=== PATIENT | female | born 1975 ===

== ENCOUNTER 2020-04-05 10:50 | Emergency (ER) | payer MEDICAID, SELFPAY ==
[2020-04-05 12:33] VITALS: BP 132/95; PULSE 69; RESP 12; TEMP 36.7; O2SAT 100; BMI 29.2
--- NOTE | 2020-04-05 12:37 | US_ITS ---
EXAM: Pelvic Ultrasound CLINICAL INDICATION: 44-year-old female with pelvic pain and bleeding. COMPARISON: No similar recent prior imaging available for comparison. TECHNIQUE: The pelvis was evaluated using transabdominal and transvaginal imaging. Color Doppler imaging and of the bilateral ovaries was also performed. FINDINGS: The uterus measures 9.0 x 5.0 x 5.0 cm in longitudinal by AP by transverse dimension. The endometrial stripe is not thickened and measures 0.3 cm. A few small nabothian cysts are present within the cervix. The left ovary measures approximately 2.4 x 1.5 x 1.6 cm and is normal. The right ovary measures approximately 2.1 x 1.5 x 1.6 cm and is also normal. Normal color Doppler flow in the bilateral ovaries. There are no abnormal adnexal masses. There is no free fluid in the pelvis. IMPRESSION: Unremarkable sonographic imaging of the pelvis.
--- NOTE | 2020-04-05 12:37 | ED.FEMALEGU ---
HPI - Female Genitourinary General Chief complaint: Vaginal Bleeding Stated complaint: VAGINAL BLEEDING Time Seen by Provider: 04/05/20 12:36 Source: patient Mode of arrival: ambulatory Limitations: no limitations History of Present Illness HPI Narrative: regular period started 2 days ago MD elicited complaint: vaginal bleeding and pelvic pain Pertinent past history: other (fibroids) Onset (ago): day(s) (1) Location of symptoms: suprapubic Severity: moderate Quality of pain: cramping Consistency: constant Vaginal bleeding: moderate, heavy, clots and # pads per day (5 today) Exacerbating factors: none Relieving factors: none Associated symptoms: denies other symptoms Treatment prior to arrival: none Patient : No Related Data Previous Rx's Medication Instructions Recorded hydrocodone-acetaminophen 1 tab PO Q6H PRN #7 tab 04/05/20 ondansetron 4 mg PO Q8H PRN #20 tab 04/05/20 Allergies Allergy/AdvReac Type Severity Reaction Status Date / Time tramadol [TRAMADOL] Allergy Intermediate HIVES Verified 04/05/20 13:47 Iodinated Contrast Media Allergy Unknown HIVES Verified 04/05/20 13:07 [IVP DYE] naproxen Allergy Anaphylaxis Verified 04/05/20 13:08 Review of Systems Review of Systems: Constitutional : No Fever, No Chills ENT/Mouth : No sore throat, No Rhinorrhea Eyes: No Eye Pain, No Redness Cardiovascular : No Chest Pain, No SOB Respiratory : No Cough, No Sputum, No Wheezing Gastrointestinal : positive Nausea, No Vomiting, No Diarrhea, positive abdominal pain, Genitourinary : positive irregular bleeding, No Dysuria, No Urinary Frequency, positive pelvic pain Musculoskeletal : No Myalgias Skin : No rash Neuro : positive Weakness, No Headache, feels dizzy at times Psych : No Anxiety/Panic, No Depression Heme/Lymph: No bruising, No Lymphadenopathy Endocrine : No Polyuria, No Polydipsia All other systems reviewed and are negative PMFSH Past Medical History Medical History (Updated 04/05/20 @ 15:21 by Meagan Rodriguez DO) delivery delivered Depressed Fibromyalgia Migraine PTSD (post-traumatic stress disorder) PTSD (post-traumatic stress disorder) Scoliosis Surgical History (Updated 04/05/20 @ 13:04 by Meagan Rodriguez DO) Tubal ligation status Social History Social History Alcohol intake: current Alcohol intake frequency: a few times a month Smoking Status: Never smoker Use of substances other than those prescribed or required for medical reasons: No Advance Directives: No Advance Directives Information Provided: No Physical Exam Vital Signs: Vital Signs: Vital Signs Temp Pulse Resp BP Pulse Ox 04/05/20 15:05 62 16 135/85 98 04/05/20 14:58 62 16 135/85 62 L 04/05/20 13:50 61 121/77 98 04/05/20 12:33 98.1 F 69 12 132/95 H 100 Body Mass Index 29.2 Appearance: Alert. Oriented X3. No acute distress. Eyes: Pupils equal, round and reactive to light. ENT: Pharynx normal. Neck: Normal inspection. Neck supple. CVS: Normal heart rate and rhythm. Pulses normal. Respiratory: No respiratory distress. Breath sounds normal. Abdomen: Soft and mild suprapubic ttp Gu: patient defers since bleeding slowed down Skin: Skin warm and dry. Normal skin color. Normal skin turgor. Extremities: No lower extremity edema. No calf ttp Neuro: Oriented X 3. No motor deficit. No sensory deficit. Course Course Course Narrative: VS stable, H/H stable, feels better, negative workup will follow up with OB and start on medications for discomfort MDM - Female Genitourinary MDM Narrative Medical decision making narrative: 44 yo female hx of fibroids comes in with heavy bleeding and clots feels dizzy will need labs, IVF, US to evaluate uterus, dispo per results and findings Lab Data Result diagrams: 04/05/20 13:13 04/05/20 13:13 Labs: Lab Results 04/05/20 04/05/20 04/05/20 Range/Units 13:13 13:13 13:13 WBC 9.2 (4.8-10.8) X10*3/uL RBC 4.37 (4.20-5.50) X10*6/uL Hgb 13.7 (12.0-16.0) g/dl Hct 40.3 (37-47) % MCV 92.2 (80-98) fL MCH 31.4 (27.0-33.0) pg MCHC 34.0 (31.0-35.0) g/dl RDW 13.2 (11.0-16.0) % Plt Count 314 (160-400) X10*3/uL MPV 8.9 L (9.4-12.3) fL Immature Gran % (Auto) 0.2 (0.0-0.4) % Neut % (Auto) 54.9 (45-73) % Lymph % (Auto) 32.1 (20-40) % [place] % (Auto) 8.2 (2-11) % Eos % (Auto) 4.1 H (0-4) % Baso % (Auto) 0.5 (0-2) % Lymph # (Auto) 3.0 (1.2-4.9) X10*3/uL [place] # (Auto) 0.8 (0.1-1.2) X10*3/uL Eos # (Auto) 0.4 (0.0-0.4) X10*3/uL Baso # (Auto) 0.1 (0.0-0.2) X10*3/uL Abs Immat Gran (auto) 0.02 (0.00-0.03) X10*3/uL Absolute Neuts (auto) 5.0 (2.0-8.3) X10*3/uL Absolute Nucleated RBC 0.000 (0.0-0.012) X10*3/uL Nucleated RBC % (auto) 0.0 (0.0-0.2) /100WBC PT Cancelled INR Cancelled APTT Cancelled Sodium 140 (135-145) mmol/L Potassium 4.8 (3.3-5.1) mmol/l Chloride 108 (96-108) mmol/L Carbon Dioxide 23 (22-29) mmol/L Anion Gap 14 (12-20) BUN 10 (9-16) mg/dL Creatinine 0.66 (0.5-1.4) mg/dL Estim Creat Clear Calc 110.4 Estimated GFR > 60 Random Glucose 97 (60-115) mg/dL Calcium 8.6 (8.4-10.2) mg/dL Magnesium 2.0 (1.6-2.6) mg/dL Total Bilirubin 0.4 (0.0-1.0) mg/dL Direct Bilirubin < 0.2 (0.0-0.5) mg/dL AST 22 (5-31) U/L ALT 11 (0-31) U/L Alkaline Phosphatase 70 (39-117) U/L Total Protein 7.7 (6.5-8.0) g/dL Albumin 3.9 (3.5-5.0) g/dL Lipase 24 (8-78) U/L Discharge Plan Discharge Clinical Impression: Vaginal bleeding Patient Disposition: Home, Self-Care Instructions: Dysfunctional Uterine Bleeding (ED) Additional Instructions: you are allergic to naprosyn but generally ibuprofen treats this kind of cramping and bleeding well Prescriptions: New ondansetron 4 mg tablet,disintegrating 4 mg PO Q8H PRN (Reason: nausea and vomiting) Qty: 20 RF: 0 hydrocodone-acetaminophen 5-325 mg tablet 1 tab PO Q6H PRN (Reason: pain) Qty: 7 RF: 0 Referrals: Vish Obando MD [Primary Care Provider] - 2 days
[2020-04-05 13:34] LABS: MANUAL DIFF FLAG NO
[2020-04-05 13:38] LABS: Basophils Absolute Auto 0.1 X10*3/uL (0.0-0.2); Basophils Percent Auto 0.5 % (0-2); Eosinophils Absolute Auto 0.4 X10*3/uL (0.0-0.4); Eosinophils Percent Auto 4.1 % (0-4); Hematocrit 40.3 % (37-47); Hemoglobin 13.7 g/dl (12.0-16.0); Imm Gran Abs Auto 0.02 X10*3/uL (0.00-0.03); Imm Gran Pct Auto 0.2 % (0.0-0.4); Lymphocytes Percent Auto 32.1 % (20-40); Mean Corpuscular Hemoglobin 31.4 pg (27.0-33.0); Mean Corpuscular Volume 92.2 fL (80-98); Mean Platelet Volume 8.9 fL (9.4-12.3); Monocytes Absolute Auto 0.8 X10*3/uL (0.1-1.2); Monocytes Percent Auto 8.2 % (2-11); Neutrophils Percent Auto 54.9 % (45-73); Platelet Count 314 X10*3/uL (160-400); Red Blood Count 4.37 X10*6/uL (4.20-5.50); Red Cell Distribution Width 13.2 % (11.0-16.0); White Blood Count 9.2 X10*3/uL (4.8-10.8)
[2020-04-05] MEDS: ondansetron HCL 4 MG/2 ML VIAL IVPUSH (13:48)
[2020-04-05] MEDS: 0.9 % Sodium Chloride 1,000 ML 999 ML IVCONT (13:49)
[2020-04-05 13:50] VITALS: BP 121/77; PULSE 61; O2SAT 98
[2020-04-05] MEDS: Morphine Sulfate 4 MG/ML CARTRIDGE IVPUSH (13:50)
[2020-04-05 14:12] LABS: Alanine Aminotransferase 11 U/L (0-31); Albumin Level 3.9 g/dL (3.5-5.0); Alkaline Phosphatase 70 U/L (39-117); Anion Gap 14 (12-20); Aspartate Amino Transferase 22 U/L (5-31); Bilirubin Direct < 0.2 mg/dL (0.0-0.5); Bilirubin Total 0.4 mg/dL (0.0-1.0); Blood Urea Nitrogen 10 mg/dL (9-16); Calcium 8.6 mg/dL (8.4-10.2); Carbon Dioxide 23 mmol/L (22-29); Chloride 108 mmol/L (96-108); Creatinine Clr Calc Pharmacy 110.4; Estimated Glomerular Filt Rate > 60; Glucose Random 97 mg/dL (60-115); Lipase 24 U/L (8-78); Potassium 4.8 mmol/l (3.3-5.1); Sodium 140 mmol/L (135-145); Total Protein 7.7 g/dL (6.5-8.0)
[2020-04-05 14:58] VITALS: BP 135/85; PULSE 62; RESP 16; O2SAT 62
[2020-04-05 15:05] VITALS: BP 135/85; PULSE 62; RESP 16; O2SAT 98
[2020-04-05 15:42] LABS: Glucose Urine UA NEG (NEG); Leukocyte Esterase Urine NEG (NEG); Nitrite Urine NEG (NEG); Specific Gravity - Urine 1.015 (1.005-1.025); Urine Blood 3+ (NEG); Urine Ketones NEG (NEG); Urine Protein NEG (NEG-TRACE)
[2020-04-05 15:43] LABS: Appearance Urine HAZY; Color Urine YELLOW
[2020-04-05 15:54] LABS: Bacteria Urine TRACE /LPF; RBC Urine 30-49 /HPF (0); Squamous Epithelial Cell Urine 1+ /LPF; WBC Urine 0 /HPF (0-4)
== END 2020-04-05 17:39 | disposition home or self-care (01) ==
PROVIDERS: Emergency Provider Emergency Medicine; PCP Internal Medicine
DX: N93.9 Abnormal uterine and vaginal bleeding, unspecified (principal); R25.2 Cramp and spasm; Z79.899 Other long term (current) drug therapy
CPT/HCPCS: 36415; 76830; 76856; 80048; 80076; 81001; 83690; 83735; 85025; 85610; 85730; 96361; 96374; 96375; 99284; J2270; J2405

== ENCOUNTER 2020-05-30 00:22 | Emergency (ER) | payer MEDICAID, SELFPAY ==
[2020-05-30 01:15] VITALS: BP 116/75; PULSE 75; RESP 16; TEMP 36.4; O2SAT 99; BMI 30.9
--- NOTE | 2020-05-30 02:24 | ED_ITS ---
HPI - Eye Problem General Chief complaint: Eye Problems Stated complaint: FACIAL SWELLING Time Seen by Provider: 05/30/20 02:17 Source: patient Mode of arrival: ambulatory Limitations: no limitations History of Present Illness HPI Narrative: Patient comes in complaining right lower eyelid swelling and inflammation. Patient states it has been ongoing for 2 days. patient denies pain with eye movement. States she has had minimal drainage from left eye. Related Data Previous Rx's Medication Instructions Recorded hydrocodone-acetaminophen 1 tab PO Q6H PRN #7 tab 04/05/20 ondansetron 4 mg PO Q8H PRN #20 tab 04/05/20 erythromycin 0.5 inch OPHTHALMIC (EYE) TID #3.5 05/30/20 g Allergies Allergy/AdvReac Type Severity Reaction Status Date / Time tramadol [TRAMADOL] Allergy Intermediate HIVES Verified 05/30/20 01:14 Iodinated Contrast Media Allergy Unknown HIVES Verified 05/30/20 01:14 [IVP DYE] naproxen Allergy Anaphylaxis Verified 05/30/20 01:14 Review of Systems Review of Systems: Constitutional : No Weight loss, No Fever, No Chills, No Night Sweats, No Fatigue, No Malaise ENT/Mouth : No Hearing loss, No Ear Pain, No Nasal Congestion, No Sinus Pain, No Hoarseness, No sore throat, No Rhinorrhea, No Swallowing Difficulty Eyes: Left eye within normal limits, right eye has a lump in the lower eyelid, swelling, pain to palpation Cardiovascular : No Chest Pain, No SOB, No Dyspnea on Exertion, No Orthopnea, No Edema, No Palpitations Respiratory : No Cough, No Sputum, No Wheezing, No Smoke Exposure, No Dyspnea Gastrointestinal : No Nausea, No Vomiting, No Diarrhea, No Constipation, No abdominal Pain, No Hematochezia, No Melena Genitourinary : no irregular bleeding, No Dysuria, No Urinary Frequency, No Hematuria, No Urinary Incontinence, No Urgency, No Flank Pain, No Urinary Flow Changes, No Hesitancy Musculoskeletal : No joint pain, No Myalgias, No Joint Swelling Skin : No Skin Lesions, No rash Neuro : No Weakness, No Numbness, No Paresthesias, No Loss of Consciousness, No Dizziness, No Headache Psych : No Anxiety/Panic, No Depression, No SI/HI/AH/VH, No Social Issues, Heme/Lymph: No Bruising, No Bleeding,No Lymphadenopathy Endocrine : No Polyuria, No Polydipsia, No Temperature Intolerance [facility] Past Medical History Medical History (Updated 05/30/20 @ 02:32 by Leigh Garnett MD) delivery delivered Depressed Fibromyalgia Glaucoma Migraine PTSD (post-traumatic stress disorder) PTSD (post-traumatic stress disorder) Scoliosis Surgical History (Updated 04/05/20 @ 13:04 by Meagan Rodriguez DO) Tubal ligation status Social History Social History Alcohol intake: current Alcohol intake frequency: a few times a month Smoking Status: Never smoker Advance Directives: No Advance Directives Information Provided: No Physical Exam Vital Signs: Vital Signs: Last Vital Signs Temp 97.6 F 05/30/20 01:15 Pulse 75 05/30/20 01:15 Resp 16 05/30/20 01:15 BP 116/75 05/30/20 01:15 Pulse Ox 99 05/30/20 01:15 Body Mass Index 30.9 Appearance: Alert. Oriented X3. No acute distress. Eyes: Pupils equal, round and reactive to light. mildly swollen lower eyelid on the right side, patient has a stye in the lower eyelid and the inner aspect of the eyelid, patient has also very small stye in the upper eyelid which is not Causing any pain. five eye pressure readings ranging between 17 and 22 on right eye. Sclera is white, on palpation over a close eye, the sclera does not seem to be hardened, within normal limits, same as left eye ENT: Pharynx normal. Neck: Normal inspection. Neck supple. No lymph nodes noted. No crepitus CVS: Normal heart rate and rhythm. Pulses normal. Normal S1 and S2 Respiratory: No respiratory distress. Breath sounds normal. No Wheezing. No rales Abdomen: Soft and nontender. No rigidity. No distention. good BS x4 Skin: Skin warm and dry. Normal skin color. Normal skin turgor. Extremities: No lower extremity edema. No lower extremity edema. No Lacerations. No Rash Neuro: Oriented X 3. No motor deficit. No sensory deficit. Moving all extermities. No slurred speech. Course Course Course Narrative: I discussed the physical exam with the patient, at this time glaucoma is not suspected, I blood pressure stable. Patient has 2 styes in the lower lid and 1 in the upper eyelid. Patient does not use contact lenses. Patient instructed to apply warm compresses and ophthalmic topical antibiotic Discharge Plan Discharge Clinical Impression: Ruth Qualifiers: Laterality: right Eyelid: lower Qualified Code(s): H00.012 - Hordeolum externum right lower eyelid Patient Disposition: Home, Self-Care Instructions: Ruth (ED) Additional Instructions: please apply to your right eye warm compresses for 10 minutes every 2 hours while you are awake. Please use the antibiotic as instructed. please follow- up with your student services vice president tomorrow. Prescriptions: New erythromycin 5 mg/gram (0.5 %) ointment 0.5 inch ophthalmic (eye) TID Qty: 3.5 RF: 0 No Action ondansetron 4 mg tablet,disintegrating 4 mg PO Q8H PRN (Reason: nausea and vomiting) Qty: 20 RF: 0 hydrocodone-acetaminophen 5-325 mg tablet 1 tab PO Q6H PRN (Reason: pain) Qty: 7 RF: 0
[2020-05-30 02:38] VITALS: BP 131/85; PULSE 72; RESP 16
--- NOTE | 2020-05-30 02:43 | PC.NURSE ---
PT HAS NO VISABLE MOVEMENT/TWITCHING TO HER RIGHT EYE. PT SEEN BY PROVIDER AND IS READY FOR DISCHARGE.
== END 2020-05-30 02:45 | disposition home or self-care (01) ==
PROVIDERS: Emergency Provider Emergency Medicine; PCP Internal Medicine
DX: H00.012 Hordeolum externum right lower eyelid (principal); H57.11 Ocular pain, right eye; R22.9 Localized swelling, mass and lump, unspecified; Z79.899 Other long term (current) drug therapy
CPT/HCPCS: 99283; 99284

== ENCOUNTER 2020-07-05 13:03 | Outpatient (REF) | payer MEDICAID, SELFPAY | END 2020-07-05 13:04 | disposition home or self-care (01) | LOC: HO.LAB 13:03 | PROVIDERS: PCP Internal Medicine; Visit Provider Internal Medicine | DX: Z20.822 Contact with and (suspected) exposure to COVID-19 (principal) | CPT/HCPCS: 36415; C9803; U0003 ==

== ENCOUNTER 2021-06-04 09:38 | Outpatient (REF) | payer MEDICAID, SELFPAY | END 2021-06-04 09:39 | disposition home or self-care (01) | LOC: HO.LAB 09:38 | PROVIDERS: Visit Provider Internal Medicine | DX: Z20.822 Contact with and (suspected) exposure to COVID-19 (principal) | CPT/HCPCS: C9803; U0003; U0005 ==

== ENCOUNTER 2022-10-07 15:18 | Emergency (ER) | payer OTHER, SELFPAY ==
--- NOTE | ~2022-10-07 | CT_ITS ---
EXAMINATION: CT ABDOMEN AND PELVIS WITHOUT CONTRAST CLINICAL INFORMATION: Abdominal pain. Evaluate for kidney stones. COMPARISON: CT abdomen pelvis 02/08/2010. TECHNIQUE: Multidetector volumetric imaging was performed from the superior aspect of the liver through the pubic symphysis. Sagittal and coronal reformatted images were obtained on the technologist's workstation. This CT examination was performed using dose optimization techniques as appropriate, variously including the following: *Automated exposure control *Adjustment of mA and/or kV according to patient size (this includes techniques or standardized protocols for targeted exams where dose is matched to indication/reason for exam; i.e. extremities or head) *Use of iterative reconstruction technique DLP: 639 mGy-cm FINDINGS: LUNG BASES: Minimal atelectasis or scarring seen in the lingula. Heart size is normal. LIVER, GALLBLADDER, AND BILIARY TREE: The liver is normal in size, shape, and attenuation. No focal hepatic lesion or biliary ductal dilatation is present. The gallbladder is unremarkable with no evidence of radiopaque gallstones, gallbladder wall thickening, or obvious pericholecystic inflammatory changes. PANCREAS: Unremarkable. SPLEEN: Unremarkable. ADRENAL GLANDS: Unremarkable. KIDNEYS AND URETERS: The kidneys are normal in size, shape, and attenuation. No hydronephrosis, hydroureter, or calculi seen. No perinephric stranding. BLADDER: Unremarkable. GASTROINTESTINAL TRACT: There is moderate scattered stool, gas seen throughout the colon without distention. The small bowel loops are normal caliber. The stomach is distended with recently ingested food. Appendix is normal caliber. No inflammatory process seen. There is no free fluid. ABDOMINAL WALL: No significant hernia is appreciated. LYMPH NODES: No abnormal size retroperitoneal lymph nodes seen. VASCULAR: Unremarkable. PELVIC VISCERA: The uterus is anteverted and unremarkable. There is bilateral tubal ligation. No free fluid or free air seen. OSSEOUS STRUCTURES: No lytic or sclerotic process seen. CT/CT abdomen pelvis wo IV con IMPRESSION: 1. No acute intra-abdominal process seen. 2. No radiopaque urolith or hydroureteronephrosis. 3. Moderate constipation. Fleischner guidelines were followed.
[2022-10-07 15:30] VITALS: BP 142/106; PULSE 86; RESP 18; TEMP 36.7; O2SAT 99; BMI 34.7
--- NOTE | 2022-10-07 15:30 | ED.BACK ---
HPI - Back Pain/Injury General Chief Complaint: General Medical <ANGIE Dick - Last Filed: 10/07/22 15:33> Stated Complaint: lower back pain <ANGIE Dick - Last Filed: 10/07/22 15:33> Time Seen by Provider: 10/07/22 17:32 <ANGIE Dick - Last Filed: 10/07/22 15:33> Related Data Home Medications: Previous Rx's Medication Instructions Recorded hydrocodone 5 mg-acetaminophen 325 1 tab PO Q6H PRN pain #7 tabs 10/20 mg tablet ondansetron 4 mg disintegrating 4 mg PO Q8H PRN nausea and 04/05/20 tablet vomiting #20 tabs erythromycin 5 mg/gram (0.5 %) eye 0.5 inch ophthalmic (eye) TID #3.5 05/30/20 ointment grams magnesium citrate 150 ml PO DAILY #296 mL 10/07/22 nitrofurantoin 100 mg PO Q12H 3 days #6 caps 10/07/22 monohydrate/macrocrystals 100 mg capsule (Macrobid) polyethylene glycol 3350 17 17 g PO DAILY 14 days #238 grams 10/07/22 gram/dose oral powder (Miralax) <ANGIE Dick - Last Filed: 10/07/22 15:33> Allergies/Adverse Reactions: Allergies Allergy/AdvReac Type Severity Reaction Status Date / Time tramadol [TRAMADOL] Allergy Intermediate HIVES Verified 05/30/20 01:14 Iodinated Contrast Media Allergy Unknown HIVES Verified 05/30/20 01:14 [IVP DYE] naproxen Allergy Anaphylaxis Verified 05/30/20 01:14 <ANGIE Dick - Last Filed: 10/07/22 15:33> [facility] Past Medical History Medical History: Medical History (Updated 10/07/22 @ 20:13 by Tomas Esparza) delivery delivered Depressed Fibromyalgia Glaucoma Migraine PTSD (post-traumatic stress disorder) PTSD (post-traumatic stress disorder) Scoliosis <ANGIE Dick - Last Filed: 10/07/22 15:33> Surgical History: Surgical History (Updated 04/05/20 @ 13:04 by Candy Rodriguez DO) Tubal ligation status <ANGIE Dick - Last Filed: 10/07/22 15:33> Social History Social History: Social History Alcohol intake: never Advance Directives: No Advance Directives Information Provided: No <ANGIE Dick - Last Filed: 10/07/22 15:33> Physical Exam Vital Signs: Vital Signs: Last Vital Signs Temp 98.1 F 10/07/22 15:30 Pulse 80 10/07/22 18:00 Resp 16 10/07/22 18:00 BP 135/83 10/07/22 18:00 Pulse Ox 99 10/07/22 18:00 O2 Del Method Room Air 10/07/22 16:32 BMI result Body Mass Index 34.7 <ANGIE Dick - Last Filed: 10/07/22 15:33> Vital Signs: Last Vital Signs Temp 98.1 F 10/07/22 15:30 Pulse 80 10/07/22 18:00 Resp 16 10/07/22 18:00 BP 135/83 10/07/22 18:00 Pulse Ox 99 10/07/22 18:00 O2 Del Method Room Air 10/07/22 16:32 BMI result Body Mass Index 34.7 <Tomas Esparza - Last Filed: 10/07/22 20:18> Course Course Course Narrative: RME - 47 y/o female with history of scoliosis presents to the ER for evaluation of lower back pain that started 1.5 weeks ago. no trauma or injury. It radiates down her buttocks and legs but also to her abdomen. Doctor gave her prednisone and oxycodone but she has not taken it. Does not want to take any more meds. Has an appointment to see a learning specialist. Plan: labs and UA. full exam in treatment room <ANGIE Dick - Last Filed: 10/07/22 15:33> Reevaluation(s) Reevaluation #1: Patient received in sign-out at change in shift pending CT scan. The CT scan does not show any evidence of obstructive uropathy or pyelonephritis. It does show mild constipation. This could explain the patient's abdominal and back pain and will be treated accordingly. The UA appears contaminated. However, when I discussed the patient's results with her she does state that she has been having some difficulty urinating, therefore we will treat as a UTI with Macrobid b.i.d. x3 days. <Tomas Esparza - Last Filed: 10/07/22 20:18> Time: 20:11 <Tomas Esparza - Last Filed: 10/07/22 20:18> Medications Administered Discontinued Medications Generic Name Dose Route Start Last Admin Trade Name Freq PRN Reason Stop Dose Admin Cyclobenzaprine HCl 10 mg 10/07/22 17:43 10/07/22 17:49 Cyclobenzaprine Hcl 10 Mg Tablet PO 10/07/22 17:44 10 mg ONCE ONE Administration Oxycodone HCl 5 mg 10/07/22 17:43 10/07/22 17:49 Oxycodone Hcl Immed Release 5 Mg Tablet PO 10/07/22 17:44 5 mg ONCE ONE Administration <ANGIE Dick - Last Filed: 10/07/22 15:33> Medications Administered Discontinued Medications Generic Name Dose Route Start Last Admin Trade Name Freq PRN Reason Stop Dose Admin Cyclobenzaprine HCl 10 mg 10/07/22 17:43 10/07/22 17:49 Cyclobenzaprine Hcl 10 Mg Tablet PO 10/07/22 17:44 10 mg ONCE ONE Administration Oxycodone HCl 5 mg 10/07/22 17:43 10/07/22 17:49 Oxycodone Hcl Immed Release 5 Mg Tablet PO 10/07/22 17:44 5 mg ONCE ONE Administration <Tomas Esparza - Last Filed: 10/07/22 20:18> Medical Decision Making Lab Data Result Diagrams: 10/07/22 17:01 10/07/22 17:01 <ANGIE Dick - Last Filed: 10/07/22 15:33> Labs: Lab Results 10/07/22 10/07/22 10/07/22 Range/Units 17:01 17:01 17:01 WBC 12.0 H (4.8-10.8) X10*3/uL RBC 4.80 (4.20-5.50) X10*6/uL Hgb 14.8 (12.0-16.0) g/dl Hct 43.3 (37.0-47.0) % MCV 90.2 (80.0-98.0) fL MCH 30.8 (27.0-33.0) pg MCHC 34.2 (31.0-35.0) g/dl RDW 12.9 (11.0-16.0) % Plt Count 329 (160-400) X10*3/uL MPV 8.8 L (9.4-12.3) fL Immature Gran % (Auto) 0.4 (0.0-0.4) % Neut % (Auto) 53.8 (45-73) % Lymph % (Auto) 33.8 (20-40) % [place] % (Auto) 8.7 (2-11) % Eos % (Auto) 2.9 (0-4) % Baso % (Auto) 0.4 (0-2) % Lymph # (Auto) 4.1 (1.2-4.9) X10*3/uL [place] # (Auto) 1.1 (0.1-1.2) X10*3/uL Eos # (Auto) 0.4 (0.0-0.4) X10*3/uL Baso # (Auto) 0.1 (0.0-0.2) X10*3/uL Abs Immat Gran (auto) 0.05 H (0.00-0.03) X10*3/uL Absolute Neuts (auto) 6.5 (2.0-8.3) x10*3/uL Absolute Nucleated RBC 0.000 (0.0-0.012) X10*3/uL Nucleated RBC % (auto) 0.0 (0.0-0.2) /100WBC Sodium 140 (135-145) mmol/L Potassium 4.1 (3.3-5.1) mmol/L Chloride 107 (96-108) mmol/L Carbon Dioxide 25 (22-29) mmol/L Anion Gap 12 (12-20) BUN 12 (9-16) mg/dL Creatinine 0.73 (0.5-1.4) mg/dL Estim Creat Clear Calc 98.1 Estimated GFR > 60 Random Glucose 84 (60-115) mg/dL Calcium 8.8 (8.4-10.2) mg/dL Magnesium 2.0 (1.6-2.6) mg/dL Total Bilirubin 0.3 (0.0-1.0) mg/dL Direct Bilirubin 0.1 (0.0-0.5) mg/dL AST 22 (5-31) U/L ALT 21 (0-31) U/L Alkaline Phosphatase 66 (39-117) U/L Total Protein 7.1 (6.5-8.0) g/dL Albumin 3.8 (3.5-5.0) g/dL Urine Color Yellow Urine Appearance Clear Urine pH 6.0 (5.0-9.0) Ur Specific [place] 1.025 (1.005-1.025) Urine Protein Negative (Neg-Trace) mg/dL Urine Glucose (UA) Negative (Negative) mg/dL Urine Ketones Negative (Negative) mg/dL Urine Blood Negative (Negative) Urine Nitrite Negative (Negative) Ur Leukocyte Esterase Small (1+) H (Negative) Urine RBC 0-2 (0-2) /HPF Urine WBC 11-20 H (0-5) /HPF Ur Squamous Epith Cells 11-20 (0-2) /HPF Urine Bacteria Trace (None Seen) Hyaline Casts 0-2 (0-2) /LPF <ANGIE Dick - Last Filed: 10/07/22 15:33> Lab Results 10/07/22 10/07/22 10/07/22 Range/Units 17:01 17:01 17:01 WBC 12.0 H (4.8-10.8) X10*3/uL RBC 4.80 (4.20-5.50) X10*6/uL Hgb 14.8 (12.0-16.0) g/dl Hct 43.3 (37.0-47.0) % MCV 90.2 (80.0-98.0) fL MCH 30.8 (27.0-33.0) pg MCHC 34.2 (31.0-35.0) g/dl RDW 12.9 (11.0-16.0) % Plt Count 329 (160-400) X10*3/uL MPV 8.8 L (9.4-12.3) fL Immature Gran % (Auto) 0.4 (0.0-0.4) % Neut % (Auto) 53.8 (45-73) % Lymph % (Auto) 33.8 (20-40) % [place] % (Auto) 8.7 (2-11) % Eos % (Auto) 2.9 (0-4) % Baso % (Auto) 0.4 (0-2) % Lymph # (Auto) 4.1 (1.2-4.9) X10*3/uL [place] # (Auto) 1.1 (0.1-1.2) X10*3/uL Eos # (Auto) 0.4 (0.0-0.4) X10*3/uL Baso # (Auto) 0.1 (0.0-0.2) X10*3/uL Abs Immat Gran (auto) 0.05 H (0.00-0.03) X10*3/uL Absolute Neuts (auto) 6.5 (2.0-8.3) x10*3/uL Absolute Nucleated RBC 0.000 (0.0-0.012) X10*3/uL Nucleated RBC % (auto) 0.0 (0.0-0.2) /100WBC Sodium 140 (135-145) mmol/L Potassium 4.1 (3.3-5.1) mmol/L Chloride 107 (96-108) mmol/L Carbon Dioxide 25 (22-29) mmol/L Anion Gap 12 (12-20) BUN 12 (9-16) mg/dL Creatinine 0.73 (0.5-1.4) mg/dL Estim Creat Clear Calc 98.1 Estimated GFR > 60 Random Glucose 84 (60-115) mg/dL Calcium 8.8 (8.4-10.2) mg/dL Magnesium 2.0 (1.6-2.6) mg/dL Total Bilirubin 0.3 (0.0-1.0) mg/dL Direct Bilirubin 0.1 (0.0-0.5) mg/dL AST 22 (5-31) U/L ALT 21 (0-31) U/L Alkaline Phosphatase 66 (39-117) U/L Total Protein 7.1 (6.5-8.0) g/dL Albumin 3.8 (3.5-5.0) g/dL Urine Color Yellow Urine Appearance Clear Urine pH 6.0 (5.0-9.0) Ur Specific [place] 1.025 (1.005-1.025) Urine Protein Negative (Neg-Trace) mg/dL Urine Glucose (UA) Negative (Negative) mg/dL Urine Ketones Negative (Negative) mg/dL Urine Blood Negative (Negative) Urine Nitrite Negative (Negative) Ur Leukocyte Esterase Small (1+) H (Negative) Urine RBC 0-2 (0-2) /HPF Urine WBC 11-20 H (0-5) /HPF Ur Squamous Epith Cells 11-20 (0-2) /HPF Urine Bacteria Trace (None Seen) Hyaline Casts 0-2 (0-2) /LPF <Tomas Esparza - Last Filed: 10/07/22 20:18> Discharge Plan Discharge Clinical Impression: Constipation <ANGIE Dick - Last Filed: 10/07/22 15:33> Patient Disposition: Home, Self-Care <ANGIE Dick - Last Filed: 10/07/22 15:33> Instructions: Constipation (ED) <ANGIE Dick - Last Filed: 10/07/22 15:33> Additional Instructions: Your CT scan showed that your quite constipated. Take magnesium citrate, the entire bottle tomorrow and take MiraLax every night for the next 2 weeks Increase fluid and fiber intake in your diet Take Macrobid twice daily for the next 3 days to treat a UTI <ANGIE Dick - Last Filed: 10/07/22 15:33> Prescriptions: New nitrofurantoin monohyd/m-cryst [Macrobid] 100 mg capsule 100 mg PO Q12H 3 Days Qty: 6 0RF Rx Instructions: must administer with a meal/food polyethylene glycol 3350 [Miralax] 17 gram/dose powder 17 g PO DAILY 14 Days Qty: 238 0RF magnesium citrate Solution 150 ml PO DAILY Qty: 296 0RF No Action ondansetron 4 mg tablet,disintegrating 4 mg PO Q8H PRN (Reason: nausea and vomiting) Qty: 20 0RF hydrocodone-acetaminophen 5-325 mg tablet 1 tab PO Q6H PRN (Reason: pain) Qty: 7 0RF erythromycin 5 mg/gram (0.5 %) ointment 0.5 inch ophthalmic (eye) TID Qty: 3.5 0RF <ANGIE Dick - Last Filed: 10/07/22 15:33>
[2022-10-07 16:32] VITALS: BP 131/85; PULSE 82; RESP 14; O2SAT 98
[2022-10-07 17:07] LABS: MANUAL DIFF FLAG NO
[2022-10-07 17:10] LABS: Basophils Absolute Auto 0.1 X10*3/uL (0.0-0.2); Basophils Percent Auto 0.4 % (0-2); Eosinophils Absolute Auto 0.4 X10*3/uL (0.0-0.4); Eosinophils Percent Auto 2.9 % (0-4); Hematocrit 43.3 % (37.0-47.0); Hemoglobin 14.8 g/dl (12.0-16.0); Imm Gran Abs Auto 0.05 X10*3/uL (0.00-0.03); Imm Gran Pct Auto 0.4 % (0.0-0.4); Lymphocytes Absolute Auto 4.1 X10*3/uL (1.2-4.9); Lymphocytes Percent Auto 33.8 % (20-40); Mean Corpuscular HGB Conc 34.2 g/dl (31.0-35.0); Mean Corpuscular Hemoglobin 30.8 pg (27.0-33.0); Mean Corpuscular Volume 90.2 fL (80.0-98.0); Mean Platelet Volume 8.8 fL (9.4-12.3); Monocytes Absolute Auto 1.1 X10*3/uL (0.1-1.2); Monocytes Percent Auto 8.7 % (2-11); Neutrophils Absolute Auto 6.5 x10*3/uL (2.0-8.3); Neutrophils Percent Auto 53.8 % (45-73); Platelet Count 329 X10*3/uL (160-400); Red Cell Distribution Width 12.9 % (11.0-16.0)
[2022-10-07 17:15] LABS: Appearance Urine Clear; Color Urine Yellow; Glucose Urine UA Negative (Negative); Leukocyte Esterase Urine Small (1+) (Negative); Nitrite Urine Negative (Negative); Specific Gravity - Urine 1.025 (1.005-1.025); UMIC TRIGGER UACC YES; Urine Blood Negative (Negative); Urine Ketones Negative (Negative); Urine Protein Negative (Neg-Trace)
[2022-10-07 17:20] LABS: Bacteria Urine Trace (None Seen); Hyaline Casts Urine 0-2 /LPF (0-2); RBC Urine 0-2 /HPF (0-2); UACC Culture Trigger YES
[2022-10-07 17:26] LABS: Alanine Aminotransferase 21 U/L (0-31); Albumin Level 3.8 g/dL (3.5-5.0); Alkaline Phosphatase 66 U/L (39-117); Anion Gap 12 (12-20); Aspartate Amino Transferase 22 U/L (5-31); Bilirubin Direct 0.1 mg/dL (0.0-0.5); Bilirubin Total 0.3 mg/dL (0.0-1.0); Blood Urea Nitrogen 12 mg/dL (9-16); Calcium 8.8 mg/dL (8.4-10.2); Carbon Dioxide 25 mmol/L (22-29); Chloride 107 mmol/L (96-108); Creatinine Clr Calc Pharmacy 98.1; Estimated Glomerular Filt Rate > 60; Glucose Random 84 mg/dL (60-115); Potassium 4.1 mmol/L (3.3-5.1); Sodium 140 mmol/L (135-145); Total Protein 7.1 g/dL (6.5-8.0)
[2022-10-07] MEDS: oxyCODONE HCl Immed Release 5 MG TABLET PO (17:49)
[2022-10-07] MEDS: Cyclobenzaprine HCl 10 MG TABLET PO (17:49)
--- NOTE | 2022-10-07 17:54 | ED_ITS ---
HPI - General Adult General Chief complaint: General Medical Stated complaint: lower back pain Time Seen by Provider: 10/07/22 17:32 Source: patient Mode of arrival: ambulatory Limitations: no limitations History of Present Illness HPI narrative: 47 yold female with pmh of chronic back pain presents to the ED or lower back pain radiating down legs and into lower abdomen. patient states mild hematuria. patient denies any fever, chills, recent trauma or any urinay/bowel incontinence. She denies any parlaysis of lower extremities. patient denies IV drug use. Related Data Previous Rx's Medication Instructions Recorded hydrocodone 5 mg-acetaminophen 325 1 tab PO Q6H PRN pain #7 tabs 04/05/20 mg tablet ondansetron 4 mg disintegrating 4 mg PO Q8H PRN nausea and 04/05/20 tablet vomiting #20 tabs erythromycin 5 mg/gram (0.5 %) eye 0.5 inch ophthalmic (eye) TID #3.5 05/30/20 ointment grams magnesium citrate 150 ml PO DAILY #296 mL 10/07/22 nitrofurantoin 100 mg PO Q12H 3 days #6 caps 10/07/22 monohydrate/macrocrystals 100 mg capsule (Macrobid) polyethylene glycol 3350 17 17 g PO DAILY 14 days #238 grams 10/07/22 gram/dose oral powder (Miralax) Allergies Allergy/AdvReac Type Severity Reaction Status Date / Time tramadol [TRAMADOL] Allergy Intermediate HIVES Verified 05/30/20 01:14 Iodinated Contrast Media Allergy Unknown HIVES Verified 05/30/20 01:14 [IVP DYE] naproxen Allergy Anaphylaxis Verified 05/30/20 01:14 Review of Systems Review of Systems: Low back pain Yes all other systems are reviewed and are negative PMF Past Medical History Medical History (Updated 10/08/22 @ 00:01 by Randall Bland) delivery delivered Depressed Fibromyalgia Glaucoma Migraine PTSD (post-traumatic stress disorder) PTSD (post-traumatic stress disorder) Scoliosis Surgical History (Updated 04/05/20 @ 13:04 by Candy Rodriguez DO) Tubal ligation status Social History Social History Alcohol intake: never Advance Directives: No Advance Directives Information Provided: No Physical Exam ED Vital Signs: Vital Signs - 24 hr 10/07/22 15:30 10/07/22 16:32 10/07/22 18:00 Temperature 98.1 F Pulse Rate 86 82 80 Respiratory Rate 18 14 16 Blood Pressure 142/106 H 131/85 135/83 Pulse Oximetry 99 98 99 Oxygen Delivery Method Room Air Room Air BMI result Body Mass Index 34.7 Const General: cooperative, healthy appearing, comfortable, no acute distress, well developed, alert, awake and Physically active Orientation/consciousness: oriented to person, oriented to place, oriented to time and patient oriented x3 [facility] Head: Yes normal to inspection, Yes No palpable skull fracture present, Yes normocephalic, Yes atraumatic and No abrasion Eyes General: appearance normal, both eyes and all related structures Neck Neck: Yes normal visual inspection, Yes full ROM, Yes no lymphadenopathy, Yes no meningeal signs, Yes trachea midline, Yes supple, No anterior neck swelling and No tender Chest Chest palpation & inspection: normal inspection of the chest and normal palpation of entire chest wall Resp Effort & Inspection: normal respiratory effort and able to speak in complete sentences Auscultation: clear to auscultation bilaterally Cardio Jugular venous distension: no JVD Heart sounds: S1 normal heart sound present and S2 normal heart sound present GI Inspection: Yes normal to inspection and No abdominal wall ecchymosis Palpation (GI): Soft to palpation, not firm, nontender, no guarding and not rigid General: Yes CVA tenderness (mild bilateral lower back/CVA) Back/Spine/Pelvis Back: CVA tenderness (mild bilateral lower back/CVA) Skin General skin exam: no rashes or lesions noted, elasticity normal and turgor normal Neuro General: oriented to person, oriented to place, oriented to time, patient oriented x3, gait normal, tone normal, moves all extremities, Normal light touch and pain sensation, no meningeal signs, no focal motor deficits, CN's II-XI intact bilaterally and normal sensation to monofilament Extrem General: Yes normal to inspection and Yes full ROM Psych Appearance: grossly normal, well kempt and not disheveled Course Course Course Narrative: Labs ordered and dry scan of abdomen ordered Reevaluation(s) Reevaluation #1: UA shows UTI vs dirty catch. CT scan is pending. SIgn out to ANGIE Marin to follow up. patient feels better after receiving pain meds Time: 19:33 Medications Administered Discontinued Medications Generic Name Dose Route Start Last Admin Trade Name Freq PRN Reason Stop Dose Admin Cyclobenzaprine HCl 10 mg 10/07/22 17:43 10/07/22 17:49 Cyclobenzaprine Hcl 10 Mg Tablet PO 10/07/22 17:44 10 mg ONCE ONE Administration Oxycodone HCl 5 mg 10/07/22 17:43 10/07/22 17:49 Oxycodone Hcl Immed Release 5 Mg Tablet PO 10/07/22 17:44 5 mg ONCE ONE Administration Medical Decision Making Medical Decision Making MDM Narrative: 47 yold female with back pain radiating to lower abdomen and states mild hematuria. labs and abdominal CT scan ordered Differential Diagnosis Differential Diagnoses: The differential diagnosis associated with the presentation includes (pyelnophritis, UTI, kidney stones, radiculopathy. ) Admission/Observation Consideration of admission/observation: Escalation of care including admission/observation considered Lab Data [facility] Lab Attestation statement: I reviewed the patient's lab results. 10/07/22 17:01 10/07/22 17:01 Labs: Lab Results 10/07/22 10/07/22 10/07/22 Range/Units 17:01 17:01 17:01 WBC 12.0 H (4.8-10.8) X10*3/uL RBC 4.80 (4.20-5.50) X10*6/uL Hgb 14.8 (12.0-16.0) g/dl Hct 43.3 (37.0-47.0) % MCV 90.2 (80.0-98.0) fL MCH 30.8 (27.0-33.0) pg MCHC 34.2 (31.0-35.0) g/dl RDW 12.9 (11.0-16.0) % Plt Count 329 (160-400) X10*3/uL MPV 8.8 L (9.4-12.3) fL Immature Gran % (Auto) 0.4 (0.0-0.4) % Neut % (Auto) 53.8 (45-73) % Lymph % (Auto) 33.8 (20-40) % [place] % (Auto) 8.7 (2-11) % Eos % (Auto) 2.9 (0-4) % Baso % (Auto) 0.4 (0-2) % Lymph # (Auto) 4.1 (1.2-4.9) X10*3/uL [place] # (Auto) 1.1 (0.1-1.2) X10*3/uL Eos # (Auto) 0.4 (0.0-0.4) X10*3/uL Baso # (Auto) 0.1 (0.0-0.2) X10*3/uL Abs Immat Gran (auto) 0.05 H (0.00-0.03) X10*3/uL Absolute Neuts (auto) 6.5 (2.0-8.3) x10*3/uL Absolute Nucleated RBC 0.000 (0.0-0.012) X10*3/uL Nucleated RBC % (auto) 0.0 (0.0-0.2) /100WBC Sodium 140 (135-145) mmol/L Potassium 4.1 (3.3-5.1) mmol/L Chloride 107 (96-108) mmol/L Carbon Dioxide 25 (22-29) mmol/L Anion Gap 12 (12-20) BUN 12 (9-16) mg/dL Creatinine 0.73 (0.5-1.4) mg/dL Estim Creat Clear Calc 98.1 Estimated GFR > 60 Random Glucose 84 (60-115) mg/dL Calcium 8.8 (8.4-10.2) mg/dL Magnesium 2.0 (1.6-2.6) mg/dL Total Bilirubin 0.3 (0.0-1.0) mg/dL Direct Bilirubin 0.1 (0.0-0.5) mg/dL AST 22 (5-31) U/L ALT 21 (0-31) U/L Alkaline Phosphatase 66 (39-117) U/L Total Protein 7.1 (6.5-8.0) g/dL Albumin 3.8 (3.5-5.0) g/dL Urine Color Yellow Urine Appearance Clear Urine pH 6.0 (5.0-9.0) Ur Specific [place] 1.025 (1.005-1.025) Urine Protein Negative (Neg-Trace) mg/dL Urine Glucose (UA) Negative (Negative) mg/dL Urine Ketones Negative (Negative) mg/dL Urine Blood Negative (Negative) Urine Nitrite Negative (Negative) Ur Leukocyte Esterase Small (1+) H (Negative) Urine RBC 0-2 (0-2) /HPF Urine WBC 11-20 H (0-5) /HPF Ur Squamous Epith Cells 11-20 (0-2) /HPF Urine Bacteria Trace (None Seen) Hyaline Casts 0-2 (0-2) /LPF Discharge Plan Discharge Clinical Impression: Constipation Patient Disposition: Home, Self-Care Instructions: Constipation (ED) Additional Instructions: Your CT scan showed that your quite constipated. Take magnesium citrate, the entire bottle tomorrow and take MiraLax every night for the next 2 weeks Increase fluid and fiber intake in your diet Take Macrobid twice daily for the next 3 days to treat a UTI Prescriptions: New nitrofurantoin monohyd/m-cryst [Macrobid] 100 mg capsule 100 mg PO Q12H 3 Days Qty: 6 0RF Rx Instructions: must administer with a meal/food polyethylene glycol 3350 [Miralax] 17 gram/dose powder 17 g PO DAILY 14 Days Qty: 238 0RF magnesium citrate Solution 150 ml PO DAILY Qty: 296 0RF No Action ondansetron 4 mg tablet,disintegrating 4 mg PO Q8H PRN (Reason: nausea and vomiting) Qty: 20 0RF hydrocodone-acetaminophen 5-325 mg tablet 1 tab PO Q6H PRN (Reason: pain) Qty: 7 0RF erythromycin 5 mg/gram (0.5 %) ointment 0.5 inch ophthalmic (eye) TID Qty: 3.5 0RF Interventions: ED Discharge Assessment Last Done: 10/07/22 20:30 Discharge Date/Time: 10/07/22 20:30
[2022-10-07 18:00] VITALS: BP 135/83; PULSE 80; RESP 16; O2SAT 99
[2022-10-07 20:28] VITALS: PULSE 78; RESP 18; TEMP 36.1; O2SAT 98
== END 2022-10-07 20:30 | disposition home or self-care (01) ==
PROVIDERS: Physician Assistant; Emergency Provider Emergency Medicine; PCP Internal Medicine
DX: K59.00 Constipation, unspecified (principal); M54.50 Low back pain, unspecified; Z79.899 Other long term (current) drug therapy
CPT/HCPCS: 36415; 74176; 80048; 80076; 81001; 83735; 85025; 87086; 87147; 99284

== ENCOUNTER 2023-07-16 11:08 | Emergency (ER) | payer OTHER, SELFPAY ==
--- NOTE | ~2023-07-16 | XR_ITS ---
EXAMINATION: XR KNEE, RIGHT CLINICAL INFORMATION: Right knee pain. Limping. COMPARISON: None available. TECHNIQUE: Four views of the right knee. FINDINGS: No acute fracture or dislocation. No significant joint space narrowing or marginal osteophytes. No osseous erosion. No abnormal soft tissue calcification. Small joint effusion. XR/XR knee RT 3V IMPRESSION: Small joint effusion.
[2023-07-16 11:10] VITALS: BP 127/81; PULSE 84; RESP 20; TEMP 36.4; O2SAT 98; BMI 33.6
--- NOTE | 2023-07-16 11:10 | ED.LOWEXIN ---
HPI - Extremity Injury (Lower) General Chief Complaint: Extremity Injury, Lower Stated Complaint: Knee pain Time Seen by Provider: 07/16/23 12:56 Source: patient, RN notes reviewed and old records reviewed Mode of arrival: ambulatory History of Present Illness HPI Narrative: 47 year-old F w/no significant PMHx presenting to the ED c/o atraumatic R knee pain x yesterday s/p hearing pop. Admits to driving a lot. denies injury/fall/trauma, numbness, calf pain MD complaint: knee injury Related Data Home Medications Medication Instructions Recorded Confirmed albuterol sulfate 90 mcg/actuation 2 puff inhalation Q4H PRN wheezing 05/13/23 05/13/23 aerosol inhaler (Ventolin HFA) cetirizine 10 mg tablet 10 mg PO DAILY 05/13/23 05/13/23 clonazepam 1 mg tablet 1 mg PO BID PRN anxiety 05/13/23 05/13/23 pregabalin 50 mg capsule 50 mg PO TID 05/13/23 05/13/23 Allergies Allergy/AdvReac Type Severity Reaction Status Date / Time naproxen Allergy Severe Anaphylaxis Verified 07/16/23 11:14 Iodinated Contrast Media Allergy Intermediate HIVES Verified 07/16/23 11:14 [IVP DYE] tramadol [TRAMADOL] Allergy Intermediate HIVES Verified 07/16/23 11:14 Review of Systems Review of Systems: Constitutional: No Fever, No Chills ENT/Mouth: No Ear Pain, No Nasal Congestion, No sore throat, No Rhinorrhea, No Swallowing Difficulty Cardiovascular: No Chest Pain, No SOB Respiratory: No Cough Gastrointestinal: No Nausea, No Vomiting, No Abdominal pain Musculoskeletal: +joint pain, No Myalgias, No Joint Swelling Skin: No Skin Lesions, No rash Neuro: No Weakness, No Numbness, No Paresthesias Yes all other systems are reviewed and are negative Constitutional: Constitutional: Reports as per [facility] Past Medical History Attestation statement: The following information was validated with the patient. Source: old records reviewed Medical History (Updated 07/16/23 @ 12:59 by ANGIE Urrutia) Pre-diabetes Asthma Glaucoma PTSD (post-traumatic stress disorder) Depressed Scoliosis Migraine Fibromyalgia Surgical History (Updated 05/13/23 @ 09:38 by Nyla Barry RN) Hx of section Tubal ligation status Social History Social History Alcohol intake: never Physical Exam Vital Signs: Vital Signs: Last Vital Signs Temp 97.6 F 07/16/23 11:10 Pulse 84 07/16/23 11:10 Resp 20 07/16/23 11:10 BP 127/81 07/16/23 11:10 Pulse Ox 98 07/16/23 11:10 O2 Del Method Room Air 07/16/23 11:10 BMI result Body Mass Index 33.6 Const: General: cooperative, healthy appearing and no acute distress Orientation/consciousness: patient oriented x3 Limitations: no limitations HEENT: Head: Yes normal to inspection and Yes atraumatic Ears: hearing grossly normal bilaterally General nose exam: Normal external nose present Face and sinus: Yes normal facial exam Eyes: General: appearance normal, both eyes and all related structures EOM: EOMs intact bilaterally Neck: Neck: Yes normal visual inspection and Yes no meningeal signs Resp: Effort & Inspection: normal respiratory effort and no respiratory distress Cardio: Rate: regular rate Skin: Rashes: no rashes Wounds: no wounds Neuro: General: patient oriented x3, tone normal and no meningeal signs Cranial nerves: Yes CN's II-XII intact bilaterally Gait exam (Neuro): Normal gait present Extrem: Other: Right knee without swelling, erythema or warmth. +mildly ttp. limited ROM 2/2 pain. NV intact distally, no crepitus General: Yes normal to inspection Course Course Course Narrative: RME: 47 year-old F w/ PMHx presenting to the ED c/o R knee pain x yesterday s/p hearing pop. denies injury/fall. Admits to driving a lot. denies numbness, calf pain Limping gait, knee w/o erythema, mildly ttp XR ordered Full HPI, ROS and PE to be performed by primary ED provider. 1258--XR knee RT 3V IMPRESSION: Small joint effusion. >> Roberto wrap applied for comfort and stability Results discussed with patient including worrisome signs and symptoms and strict return precautions, and when to return to the emergency department. They verbalized understanding and feel safe for discharge at this time. Medical Decision Making Medical Decision Making MDM Narrative: 47 year-old F w/no significant PMHx presenting to the ED c/o atraumatic R knee pain x yesterday s/p hearing pop. On exam vital signs stable, NAD, nontoxic appearing with physical exam as noted above. Concern for tendon/ligamental or meniscal injury. Low suspicion for fracture, septic joint arthritis or DVT Plan: X-ray Please refer to course for remaining clinical decision making, interpretation of labs/imaging results, and discussions with consultants and/or family members. Differential Diagnosis Differential Diagnoses: The differential diagnosis associated with the presentation includes As above Independent Interpretation I performed an independent interpretation of an: Plain X-Ray Radiology Impression Discussion of test interpretation with radiology: I have reviewed the radiologist's reading. External Record Review External record reviewed: Inpatient record, Office record, Outpatient record, Prior outpatient labs, Prior outpatient radiology, Primary care record and Outside ED record Tests considered The following testing was considered but not selected: As above Prescription Management I considered prescription management with: Pain Medication Discharge Plan Discharge Clinical Impression: Effusion of knee joint Patient Disposition: Home, Self-Care Additional Instructions: Your x-ray shows a small joint effusion Wear Roberto wrap for comfort and stability Ice and elevate Take Tylenol and ibuprofen for pain/swelling Please follow-up with her doctor and orthopedics as needed Prescriptions: No Action cetirizine 10 mg tablet 10 mg PO DAILY clonazepam 1 mg tablet 1 mg PO BID PRN (Reason: anxiety) pregabalin 50 mg capsule 50 mg PO TID albuterol sulfate [Ventolin HFA] 90 mcg/actuation HFA aerosol inhaler 2 puff inhalation Q4H PRN (Reason: wheezing) Referrals: [facility] [Provider Group] Vish Obando MD [Primary Care Provider] -
[2023-07-16 12:55] VITALS: BP 130/73; PULSE 85; RESP 18; TEMP 36.9; O2SAT 99
[2023-07-16] MEDS: Ibuprofen 600 MG TABLET PO (13:07)
--- NOTE | 2023-07-16 13:13 | PC.NURSE ---
vitals updated, pt medicated per AUG for 01/30 right atraumatic knee pain, patsy wrap applied. pt will follow up w/ ortho for further eval and tx
== END 2023-07-16 13:15 | disposition home or self-care (01) ==
PROVIDERS: Emergency Provider Emergency Medicine; PCP Internal Medicine
DX: M25.561 Pain in right knee (principal); Z79.899 Other long term (current) drug therapy
CPT/HCPCS: 73562; 99283

== ENCOUNTER 2023-10-09 21:38 | Emergency (ER) | payer OTHER, SELFPAY ==
--- NOTE | ~2023-10-09 | XR_ITS ---
EXAMINATION: XR CHEST CLINICAL INFORMATION: Chest pain COMPARISON: Chest x-ray July 11, 2016 TECHNIQUE: 2 views of the chest were obtained. FINDINGS: No significant abnormality is noted involving the heart, lungs, mediastinum, bony thorax or soft tissues. XR/XR chest 2V IMPRESSION: Unremarkable examination.
--- NOTE | 2023-10-09 21:41 | ECG_ITS ---
Test Reason : CHEST PAIN Blood Pressure : / mmHG Vent. Rate : 076 BPM Atrial Rate : 076 BPM P-R Int : 170 ms QRS Dur : 082 ms QT Int : 380 ms P-R-T Axes : 058 009 038 degrees QTc Int : 427 ms Normal sinus rhythm Minimal voltage criteria for LVH, may be normal variant ( R in aVL ) Cannot rule out Anterior infarct , age undetermined Abnormal ECG When compared to the previous EKG of 11 jul 2016, changes of LVH; anterior wall Referred By: Generic ED Physician Electronically Signed By:MAURICE MAYO
[2023-10-09 21:48] VITALS: BP 138/95; PULSE 78; RESP 16; TEMP 37; O2SAT 98; BMI 31.4
[2023-10-09 21:57] LABS: MANUAL DIFF FLAG NO
[2023-10-09 21:59] LABS: Basophils Absolute Auto 0.1 X10*3/uL (0.0-0.2); Basophils Percent Auto 0.5 % (0-2); Eosinophils Absolute Auto 0.2 X10*3/uL (0.0-0.4); Eosinophils Percent Auto 2.3 % (0-4); Hematocrit 43.1 % (37.0-47.0); Hemoglobin 15.1 g/dl (12.0-16.0); Imm Gran Abs Auto 0.02 X10*3/uL (0.00-0.03); Imm Gran Pct Auto 0.2 % (0.0-0.4); Lymphocytes Absolute Auto 3.8 X10*3/uL (1.2-4.9); Lymphocytes Percent Auto 36.5 % (20-40); Mean Corpuscular Hemoglobin 31.1 pg (27.0-33.0); Mean Corpuscular Volume 88.7 fL (80.0-98.0); Mean Platelet Volume 8.5 fL (9.4-12.3); Monocytes Absolute Auto 0.7 X10*3/uL (0.1-1.2); Monocytes Percent Auto 6.7 % (2-11); Neutrophils Absolute Auto 5.6 x10*3/uL (2.0-8.3); Neutrophils Percent Auto 53.8 % (45-73); Platelet Count 334 X10*3/uL (160-400); Red Blood Count 4.86 X10*6/uL (4.20-5.50); Red Cell Distribution Width 12.6 % (11.0-16.0); White Blood Count 10.3 X10*3/uL (4.8-10.8)
[2023-10-09 22:15] LABS: Anion Gap 14 (12-20); Blood Urea Nitrogen 9 mg/dL (9-16); Calcium 9.2 mg/dL (8.4-10.2); Carbon Dioxide 22 mmol/L (22-29); Chloride 108 mmol/L (96-108); Estimated Glomerular Filt Rate > 60; Glucose Random 189 mg/dL (60-115); Potassium 3.5 mmol/L (3.3-5.1); Sodium 140 mmol/L (135-145)
[2023-10-09 22:18] VITALS: BP 125/86; PULSE 69; RESP 18; O2SAT 98
[2023-10-09 22:24] LABS: Troponin-I High Sensitivity < 2.7 ng/L (<3.5-17.0)
--- NOTE | 2023-10-09 22:30 | ED_ITS ---
HPI - Neuro Symptoms/Deficit General Chief Complaint: Neuro Symptoms/Deficit Stated Complaint: chest pain, sob Time Seen by Provider: 10/09/23 22:01 Source: patient, RN notes reviewed and old records reviewed Mode of arrival: ambulatory Limitations: no limitations History of Present Illness HPI Narrative: 48-year-old female presents for evaluation of left-sided chest pain. She reports she woke up around 7:00 a.m. with the pain The pain radiates to her left arm. She also complains of a heaviness or numbness feeling in my left arm. ? Denies any history of coronary artery disease. She states that she has a history of ?palpitations and a valve issue. ? Patient reports that she had some associated shortness of breath earlier today. She states the pain has been constant throughout the day and is currently a 6/10 The patient reports that she worked all day with the pain and the pain did not get better or worse Denies any fevers, chills, cough Related Data Home Medications ?Medication ?Instructions ?Recorded ?Confirmed albuterol sulfate 90 mcg/actuation 2 puff inhalation Q4H PRN wheezing 05/13/23 05/13/23 aerosol inhaler (Ventolin HFA) cetirizine 10 mg tablet 10 mg PO DAILY 05/13/23 05/13/23 clonazepam 1 mg tablet 1 mg PO BID PRN anxiety 05/13/23 05/13/23 pregabalin 50 mg capsule 50 mg PO TID 05/13/23 05/13/23 Allergies Allergy/AdvReac Type Severity Reaction Status Date / Time naproxen Allergy Severe Anaphylaxis Verified 10/09/23 21:59 Iodinated Contrast Media Allergy Intermediate HIVES Verified 10/09/23 21:59 [IVP DYE] tramadol [TRAMADOL] Allergy Intermediate HIVES Verified 10/09/23 21:59 Review of Systems 2 Constitutional: Constitutional: Denies body ache(s), Denies chills, Denies fatigue and Denies fever(s) Eyes: Eyes: Denies blurry vision Cardiovascular: Cardiovascular: Reports chest pain and Reports dyspnea Respiratory: Respiratory: Denies cough and Reports dyspnea Gastrointestinal: Gastrointestinal: Denies abdominal pain, Denies nausea and Denies vomiting Musculoskeletal: Musculoskeletal: Denies back pain, Denies numbness and Reports radiating pain into limb Integumentary/Breasts: Skin/Breast: Denies rash Neurologic: Denies numbness and Denies paresthesias Psychiatric: Psychiatric: Denies anxiety Endocrine: Endocrine: Denies fatigue PMFSH Past Medical History Medical History (Updated 10/09/23 @ 22:35 by Tomas Esparza) Pre-diabetes Asthma Glaucoma PTSD (post-traumatic stress disorder) Depressed Scoliosis Migraine Fibromyalgia Surgical History (Updated 05/13/23 @ 09:38 by Nyla Barry RN) Hx of section Tubal ligation status Social History Social History Alcohol intake: never Smoked in Last 30 Days: No Advance Directives: No Advance Directives Information Provided: Yes Patient : No Physical Exam 2 Vital Signs: Vital Signs: Last Vital Signs Temp 97.9 F 10/09/23 23:50 Pulse 71 10/09/23 23:50 Resp 16 10/09/23 23:50 BP 133/79 10/09/23 23:50 Pulse Ox 98 10/09/23 23:50 O2 Del Method Room Air 10/09/23 23:50 BMI result Body Mass Index 31.4 Const: General: healthy appearing, comfortable, no acute distress, alert and awake Nutritional Appearance: well nourished Orientation/consciousness: p atient oriented x3 HEENT: Head: Yes normocephalic and Yes atraumatic Eyes: Eyelids: Yes eyelids normal Conjunctivae: conjunctivae normal S clerae: sclerae normal Corneas: corneas normal Pupils: Equal, round and reactive pupils present EOM: EOMs intact bilaterally Neck: Neck: Yes full ROM Resp: Effort & Inspection: normal respiratory effort, able to speak in complete sentences, no audible wheezes and not labored Auscultation: clear to auscultation bilaterally Cardio: Rate: regular rate Rhythm: regular rhythm GI: Inspection: No distended Palpation (GI): Soft to palpation, not firm, nontender, no guarding and not rigid Skin: General skin exam: elasticity normal Neuro: General: patient oriented x3 Cranial nerves: Yes CN's II-XII intact bilaterally, Yes Equal, round and reactive pupils present and Yes Bilaterally intact EOM present Cognition (Neuro): normal cognition Course Reevaluation(s) Reevaluation #1: Discussed patient's workup with her, she was requesting discharge home reports feeling better. She has ruled out for ACS and is stable for discharge home at this time Time: 00:11 Medical Decision Making Medical Decision Making [facility] Narrative: 48-year-old female presents for evaluation of left-sided chest pain that radiates to her left arm. Triage nursing staff was concerned for potential neurologic cause of her symptoms. She has no neuro deficits, NIH stroke score is 0. Her symptoms seem much more to potential cardiac nature versus musculoskeletal origin. Plan for EKG, labs, chest x-ray. Differential Diagnosis Differential Diagnoses: The differential diagnosis associated with the presentation includes Chest pain ACS Anxiety GERD Pneumonia Bronchitis PE less likely Lab Data [facility] Lab Attestation statement: I reviewed the patient's lab results. No leukocytosis or anemia. Normal platelet count. No electrolyte abnormalities. Patient's glucose is elevated to 189. Troponin is less than 2.7 which rules her out for ACS as the patient has had chest pain for over 12 hours 10/09/23 21:53 10/09/23 21:53 Labs: Lab Results 10/09/23 Range/Units 21:53 WBC 10.3 (4.8-10.8) X10*3/uL RBC 4.86 (4.20-5.50) X10*6/uL Hgb 15.1 (12.0-16.0) g/dl Hct 43.1 (37.0-47.0) % MCV 88.7 (80.0-98.0) fL MCH 31.1 (27.0-33.0) pg MCHC 35.0 (31.0-35.0) g/dl RDW 12.6 (11.0-16.0) % Plt Count 334 (160-400) X10*3/uL MPV 8.5 L (9.4-12.3) fL Immature Gran % (Auto) 0.2 (0.0-0.4) % Neut % (Auto) 53.8 (45-73) % Lymph % (Auto) 36.5 (20-40) % [place] % (Auto) 6.7 (2-11) % Eos % (Auto) 2.3 (0-4) % Baso % (Auto) 0.5 (0-2) % Lymph # (Auto) 3.8 (1.2-4.9) X10*3/uL [place] # (Auto) 0.7 (0.1-1.2) X10*3/uL Eos # (Auto) 0.2 (0.0-0.4) X10*3/uL Baso # (Auto) 0.1 (0.0-0.2) X10*3/uL Abs Immat Gran (auto) 0.02 (0.00-0.03) X10*3/uL Absolute Neuts (auto) 5.6 (2.0-8.3) x10*3/uL Absolute Nucleated RBC 0.000 (0.0-0.012) X10*3/uL Nucleated RBC % (auto) 0.0 (0.0-0.2) /100WBC Sodium 140 (135-145) mmol/L Potassium 3.5 (3.3-5.1) mmol/L Chloride 108 (96-108) mmol/L Carbon Dioxide 22 (22-29) mmol/L Anion Gap 14 (12-20) BUN 9 (9-16) mg/dL Creatinine 0.71 (0.5-1.4) mg/dL Estim Creat Clear Calc 102.0 Estimated GFR > 60 Random Glucose 189 H (60-115) mg/dL Calcium 9.2 (8.4-10.2) mg/dL Total Bilirubin 0.5 (0.0-1.0) mg/dL Direct Bilirubin 0.2 (0.0-0.5) mg/dL AST 16 (5-31) U/L ALT 15 (0-31) U/L Alkaline Phosphatase 81 (39-117) U/L Troponin I High Sens < 2.7 (<3.5-17.0) ng/L Total Protein 8.1 H (6.5-8.0) g/dL Albumin 4.2 (3.5-5.0) g/dL Lipase 16 (8-78) U/L Independent Interpretation I performed an independent interpretation of an: EKG Interpretation: Sinus rhythm with a rate of [address] segment elevations or depressions. Discharge Plan Discharge Clinical Impression: Chest pain Patient Disposition: Home, Self-Care Instructions: Chest Pain (ED) Additional Instructions: Your workup in the ER today was reassuring. This includes your blood work, chest x-ray, EKG. Your symptoms may be related to anxiety or stress versus a muscle strain Follow-up with your primary doctor, return for new or worsening symptoms Prescriptions: No Action cetirizine 10 mg tablet 10 mg PO DAILY clonazepam 1 mg tablet 1 mg PO BID PRN (Reason: anxiety) pregabalin 50 mg capsule 50 mg PO TID albuterol sulfate [Ventolin HFA] 90 mcg/actuation HFA aerosol inhaler 2 puff inhalation Q4H PRN (Reason: wheezing) Stand Alone Forms: Work/School Release Print Language: Kittitian
[2023-10-09 23:45] LABS: Alanine Aminotransferase 15 U/L (0-31); Albumin Level 4.2 g/dL (3.5-5.0); Alkaline Phosphatase 81 U/L (39-117); Aspartate Amino Transferase 16 U/L (5-31); Bilirubin Direct 0.2 mg/dL (0.0-0.5); Bilirubin Total 0.5 mg/dL (0.0-1.0); Lipase 16 U/L (8-78); Total Protein 8.1 g/dL (6.5-8.0)
[2023-10-09 23:50] VITALS: BP 133/79; PULSE 71; RESP 16; TEMP 36.6; O2SAT 98
[2023-10-10 00:20] VITALS: BP 133/79; PULSE 71; RESP 16; TEMP 36.6; O2SAT 98
== END 2023-10-10 00:20 | disposition home or self-care (01) ==
PROVIDERS: Physician Assistant; Emergency Provider Emergency Medicine; PCP Internal Medicine
DX: R07.9 Chest pain, unspecified (principal)
CPT/HCPCS: 36415; 71046; 80048; 80076; 83690; 84484; 85025; 93005; 99284; 99285

== ENCOUNTER → 2023-10-09 21:41 | Outpatient (BNV) | payer OTHER, SELFPAY | PROVIDERS: Emergency Provider Emergency Medicine; PCP Internal Medicine; Visit Provider Internal Medicine | DX: R94.31 Abnormal electrocardiogram [ECG] [EKG] (principal) | CPT/HCPCS: 93010 ==

== ENCOUNTER 2024-01-02 00:14 | Emergency (ER) | payer OTHER, SELFPAY ==
--- NOTE | ~2024-01-02 | XR_ITS ---
EXAMINATION: XR CERVICAL SPINE CLINICAL INFORMATION: Pain. COMPARISON: None available. TECHNIQUE: 3 views of the cervical spine were obtained. FINDINGS: There are no prevertebral soft tissue or bony abnormalities demonstrated. No compression fractures or subluxations are identified. Alignment is maintained at the atlanto-axial articulation. The disc spaces are preserved. No endplate changes are seen. The prevertebral soft tissues are normal. XR/XR cervical spine 2V IMPRESSION: Unremarkable examination.
--- NOTE | ~2024-01-02 | XR_ITS ---
EXAMINATION: XR THORACIC SPINE CLINICAL INFORMATION: Pain. COMPARISON: None available. TECHNIQUE: 3 views of the thoracic spine were obtained. FINDINGS: There is no fracture or bone destruction seen and the vertebral alignment is normal. There is no disc space narrowing. There is no abnormality of the paraspinal soft tissues. XR/XR thoracic spine 3V IMPRESSION: Unremarkable examination.
[2024-01-02 00:30] VITALS: BP 146/92; PULSE 84; RESP 16; TEMP 36.8; O2SAT 100; BMI 30.9
[2024-01-02] MEDS: Ondansetron ODT 4 MG TAB.RAPDIS TRANSLINGU (01:27)
[2024-01-02] MEDS: Morphine Sulfate 2 MG/ML CARTRIDGE IM (01:27)
--- NOTE | 2024-01-02 01:32 | ED.GENADULT ---
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 ? She reports that she has subsequently seen her primary doctor. She has not had any imaging She reports that she was prescribed oxycodone, muscle relaxer, prednisone and has had no improvement in her symptoms She reports that she was waiting to see a physical therapist Patient states that she can not work due to her pain She complains of numbness in her left arm She reports her pain radiates to her head and is also now complaining of upper back pain There was never any traumatic fall or injury She reports a history of fibromyalgia No other complaints or concerns at this time Related Data Home Medications ?Medication ?Instructions ?Recorded ?Confirmed albuterol sulfate 90 mcg/actuation 2 puff inhalation Q4H PRN wheezing 05/13/23 05/13/23 aerosol inhaler (Ventolin HFA) cetirizine 10 mg tablet 10 mg PO DAILY 05/13/23 05/13/23 clonazepam 1 mg tablet 1 mg PO BID PRN anxiety 05/13/23 05/13/23 pregabalin 50 mg capsule 50 mg PO TID 05/13/23 05/13/23 Allergies Allergy/AdvReac Type Severity Reaction Status Date / Time naproxen Allergy Severe Anaphylaxis Verified 01/02/24 00:33 Iodinated Contrast Media Allergy Intermediate HIVES Verified 01/02/24 00:33 [IVP DYE] tramadol [TRAMADOL] Allergy Intermediate HIVES Verified 01/02/24 00:33 Review of Systems Constitutional: Constitutional: Denies body ache(s), Denies chills, Denies fever(s) and Reports headache(s) Eyes: Eyes: Denies blurry vision ENT: Reports headache(s) and Reports neck pain Cardiovascular: Cardiovascular: Denies chest pain and Denies dyspnea Respiratory: Respiratory: Denies cough and Denies dyspnea Gastrointestinal: Gastrointestinal: Denies abdominal pain, Denies nausea and Denies vomiting Musculoskeletal: Musculoskeletal: Reports back pain, Denies muscle weakness, Reports neck pain, Denies numbness, Reports radiating pain into limb, Reports stiffness and Reports tingling Integumentary/Breasts: Skin/Breast: Denies rash Neurologic: Reports headache(s), Denies numbness and Reports tingling PMFSH Past Medical History Medical History (Updated 01/02/24 @ 01:38 by Tomas Esparza) Pre-diabetes Asthma Glaucoma PTSD (post-traumatic stress disorder) Depressed Scoliosis Migraine Fibromyalgia Surgical History (Updated 05/13/23 @ 09:38 by Nyla Barry RN) Hx of section Tubal ligation status Social History Social History Alcohol intake: never Advance Directives: No Advance Directives Information Provided: Yes Physical Exam ED Vital Signs: Vital Signs - 24 hr 01/02/24 00:30 Temperature 98.2 F Pulse Rate 84 Respiratory Rate 16 Blood Pressure 146/92 H Pulse Oximetry 100 Oxygen Delivery Method Room Air BMI result Body Mass Index 30.9 Const General: healthy appearing, comfortable, no acute distress, alert and awake Nutritional Appearance: well nourished Orientation/consciousness: patient oriented x3 HENMT Head: Yes normocephalic and Yes atraumatic Eyes Eyelids: Yes eyelids normal Conjunctivae: conjunctivae normal Sclerae: sclerae normal Corneas: corneas normal Pupils: Equal, round and reactive pupils present EOM: EOMs intact bilaterally Neck Neck: Yes full ROM, Yes no meningeal signs and No anterior neck swelling Resp Effort & Inspection: normal respiratory effort, able to speak in complete sentences and not labored Back/Spine/Pelvis Cervical Spine: collar present (Patient is wearing a soft collar that was removed for exam), cervical muscular tenderness, cervical spasm, Cervical spine tenderness and No step off deformity Thoracic/Lumbar Spine: paraspinal muscle tenderness and thoracic spinal tenderness at T1, at T2, at T3 and at T4; not at T5, not at T6, not at T7, not at T8, not at T9, not at T10, not at T11 and not at T12 Skin General skin exam: elasticity normal Neuro General: patient oriented x3 and no meningeal signs Cranial nerves: Yes Equal, round and reactive pupils present and Yes Bilaterally intact EOM present Cognition (Neuro): normal cognition Extrem Other: Moving all extremities well without any obvious deformities Medications Administered Discontinued Medications Generic Name Dose Route Start Last Admin Trade Name Freq PRN Reason Stop Dose Admin Morphine Sulfate 2 mg 01/02/24 01:10 01/02/24 01:27 Morphine Sulfate 2 Mg/Ml Cartridge IM 01/02/24 01:11 2 mg ONCE ONE Administration Protocol Ondansetron HCl 4 mg 01/02/24 01:10 01/02/24 01:27 Ondansetron Odt 4 Mg Tab.Debradis NUZHATINGU 01/02/24 01:11 4 mg ONCE ONE Administration Medical Decision Making Medical Decision Making [facility] Narrative: 48-year-old female presents for evaluation of neck pain. She sustained an injury a few weeks ago and has not had any imaging. There was no fall or trauma to lead 2 cervical fracture, plan for x-rays of the C-spine and thoracic spine to evaluate for compression injury. Patient has no concerning neuro deficits on exam. She has home prescriptions for oxycodone, prednisone and muscle relaxers. We will give her a dose of IM morphine today. Differential Diagnosis Differential Diagnoses: The differential diagnosis associated with the presentation includes Cervical strain Radiculopathy Neck pain Compression fracture Independent Interpretation I performed an independent interpretation of an: Plain X-Ray Interpretation: Unremarkable thoracic spine x-ray Cervical spine shows straightening of the normal cervical lordosis suggestive of muscle spasm. No obvious compression deformity Discharge Plan Discharge Clinical Impression: Acute neck pain Patient Disposition: Home, Self-Care Instructions: Acute Neck Pain (ED) Additional Instructions: You may continue to use Tylenol and your prescribed oxycodone for pain. Your x-ray did not show any evidence of fracture. I recommend you follow-up with physical therapy. If your symptoms persist you may benefit from an outpatient MRI Prescriptions: No Action cetirizine 10 mg tablet 10 mg PO DAILY clonazepam 1 mg tablet 1 mg PO BID PRN (Reason: anxiety) pregabalin 50 mg capsule 50 mg PO TID albuterol sulfate [Ventolin HFA] 90 mcg/actuation HFA aerosol inhaler 2 puff inhalation Q4H PRN (Reason: wheezing) Stand Alone Forms: Work/School Release Print Language: Setswana
[2024-01-02 01:50] VITALS: BP 140/90; PULSE 79; RESP 17; TEMP 36.4; O2SAT 100
[2024-01-02 02:01] VITALS: BP 140/90; PULSE 79; RESP 17; TEMP 36.4; O2SAT 100
== END 2024-01-02 02:10 | disposition home or self-care (01) ==
PROVIDERS: Emergency Provider Emergency Medicine
DX: M54.2 Cervicalgia (principal); E11.9 Type 2 diabetes mellitus without complications
CPT/HCPCS: 72040; 72072; 96372; 99283; 99284; J2270

== ENCOUNTER 2024-11-03 08:51 | Emergency (ER) | payer MEDICAID, SELFPAY ==
--- NOTE | 2024-11-03 | ECG_ITS ---
Test Reason : YOBANI Blood Pressure : */* mmHG Vent. Rate : 67 BPM Atrial Rate : 67 BPM P-R Int : 190 ms QRS Dur : 80 ms QT Int : 386 ms P-R-T Axes : 57 11 30 degrees QTcB Int : 407 ms Normal sinus rhythm Normal ECG When compared with ECG of 09-Oct-2023 21:43, Nonspecific T wave abnormality no longer evident in Anterolateral leads Referred By: Constantino Pascal Electronically Signed By: DARIELA RYAN MD
[2024-11-03 08:58] VITALS: BP 129/85; PULSE 90; RESP 16; TEMP 36.6; O2SAT 98; BMI 31.7
--- NOTE | 2024-11-03 09:14 | ED.GENADULT ---
HPI - General Adult General Chief complaint: General Medical Stated complaint: Flu Symptoms Time Seen by Provider: 11/03/24 09:01 Source: patient Mode of arrival: ambulatory History of Present Illness HPI narrative: This is 49 years old the patient presented also with the daughter who is a patient complaining of sore throat malaise weakness. Denies any fever chills vomiting. She states she has been under stress the granddaughter is in the NICU. She carry a diagnosis of fibromyalgia Onset (ago): day(s) (1) Radiation: non-radiation Severity: moderate Quality: burning Pain Consistency: constant Relieving factors: none Exacerbating factors: none Related Data Home Medications ?Medication ?Instructions ?Recorded ?Confirmed albuterol sulfate 90 mcg/actuation 2 puff inhalation Q4H PRN wheezing 05/13/23 05/13/23 aerosol inhaler (Ventolin HFA) cetirizine 10 mg tablet 10 mg PO DAILY 05/13/23 05/13/23 clonazepam 1 mg tablet 1 mg PO BID PRN anxiety 05/13/23 05/13/23 pregabalin 50 mg capsule 50 mg PO TID 05/13/23 05/13/23 Allergies Allergy/AdvReac Type Severity Reaction Status Date / Time naproxen Allergy Severe Anaphylaxis Verified 11/03/24 09:02 Iodinated Contrast Media Allergy Intermediate HIVES Verified 11/03/24 09:02 [IVP DYE] tramadol [TRAMADOL] Allergy Intermediate HIVES Verified 11/03/24 09:02 Review of Systems Constitutional: Constitutional: Reports no additional constitutional complaints ENT: Reports system reviewed and no additional complaints, except as documented Cardiovascular: Cardiovascular: Reports no additional cardiovascular complaints PMFSH Past Medical History Attestation statement: The following information was validated with the patient. Medical History Pre-diabetes Asthma Glaucoma PTSD (post-traumatic stress disorder) Depressed Scoliosis Migraine Fibromyalgia Surgical History (Updated 05/13/23 @ 09:38 by Nyla Barry RN) Hx of section Tubal ligation status Social History Social History Alcohol intake: never Advance Directives: No Advance Directives Information Provided: Yes Physical Exam ED Vital Signs: Vital Signs - 24 hr 11/03/24 08:58 11/03/24 10:34 Temperature 97.9 F 98.3 F Pulse Rate 90 61 Respiratory Rate 16 18 Blood Pressure 129/85 142/85 H Pulse Oximetry 98 99 Oxygen Delivery Method Room Air BMI result Body Mass Index 31.7 No acute distress looks Const General: cooperative Nutritional Appearance: well nourished Orientation/consciousness: patient oriented x3 HENMT Head: Yes normal to inspection Ears: hearing grossly normal bilaterally General nose exam: Normal external nose present Mouth: Normal oral and palatal mucosa present Neck Neck: Yes normal visual inspection Chest Chest palpation & inspection: normal inspection of the chest Resp Effort & Inspection: normal respiratory effort Auscultation: clear to auscultation bilaterally Cardio Palpation: normal PMI Rate: regular rate GI Inspection: Yes normal to inspection Palpation (GI): Soft to palpation, not firm and nontender Percussion: Yes normal to percussion General: Yes no CVA tenderness Back/Spine/Pelvis Back: no CVA tenderness Skin General skin exam: no rashes or lesions noted Rashes: no rashes Wounds: no wounds Neuro General: patient oriented x3 Course Reevaluation(s) Reevaluation #1: She is feeling better labs normal anticipate discharge Time: 11:48 Medications Administered Discontinued Medications Generic Name Dose Route Start Last Admin Trade Name Freq PRN Reason Stop Dose Admin Sodium Chloride 1,000 mls @ 999 mls/hr 11/03/24 10:45 11/03/24 10:49 Ns IV 11/03/24 11:45 999 mls/hr .Q1H1M ADIN Administration Ondansetron HCl 4 mg 11/03/24 10:40 11/03/24 10:49 Ondansetron Hcl 4 Mg/2 Ml Vial IVPUSH 11/03/24 10:41 4 mg ONCE ONE Administration Medical Decision Making Medical Decision Making [facility] Narrative: Patient is here with sore throat URI symptoms we will check viral panel and labs Differential Diagnosis Differential Diagnoses: The differential diagnosis associated with the presentation includes Viral syndrome/call with the/flu Admission/Observation Consideration of admission/observation: Escalation of care including admission/observation considered Lab Data MDM Lab Attestation statement: I reviewed the patient's lab results. 11/03/24 10:24 11/03/24 10:24 Labs: Lab Results 05/14/25 05/14/25 05/14/25 Range/Units 09:54 09:55 10:24 WBC 9.0 (4.8-10.8) X10*3/uL RBC 4.24 (4.20-5.50) X10*6/uL Hgb 13.5 (12.0-16.0) g/dl Hct 37.8 (37.0-47.0) % MCV 89.2 (80.0-98.0) fL MCH 31.8 (27.0-33.0) pg MCHC 35.7 H (31.0-35.0) g/dl RDW 12.8 (11.0-16.0) % Plt Count 294 (160-400) X10*3/uL MPV 8.6 L (9.4-12.3) fL Immature Gran % (Auto) 0.2 (0.0-0.4) % Neut % (Auto) 55.0 (45-73) % Lymph % (Auto) 31.0 (20-40) % [place] % (Auto) 9.7 (2-11) % Eos % (Auto) 3.4 (0-4) % Baso % (Auto) 0.7 (0-2) % Lymph # (Auto) 2.8 (1.2-4.9) X10*3/uL [place] # (Auto) 0.9 (0.1-1.2) X10*3/uL Eos # (Auto) 0.3 (0.0-0.4) X10*3/uL Baso # (Auto) 0.1 (0.0-0.2) X10*3/uL Abs Immat Gran (auto) 0.02 (0.00-0.03) X10*3/uL Absolute Neuts (auto) 5.0 (2.0-8.3) x10*3/uL Absolute Nucleated RBC 0.000 (0.0-0.012) X10*3/uL Nucleated RBC % (auto) 0.0 (0.0-0.2) /100WBC Sodium 139 (135-145) mmol/L Potassium 3.8 (3.3-5.1) mmol/L Chloride 107 (96-108) mmol/L Carbon Dioxide 23 (22-29) mmol/L Anion Gap 13 (12-20) BUN 6 L (9-16) mg/dL Creatinine 0.60 (0.5-1.4) mg/dL Estim Creat Clear Calc 111.4 Estimated GFR > 60 Random Glucose 98 (60-115) mg/dL Calcium 8.7 (8.4-10.2) mg/dL Total Bilirubin 0.7 (0.0-1.0) mg/dL AST 20 (5-31) U/L ALT 13 (0-31) U/L Alkaline Phosphatase 63 (39-117) U/L Total Protein 7.2 (6.5-8.0) g/dL Albumin 3.8 (3.5-5.0) g/dL Influenza Type A (PCR) NEGATIVE (Negative) Influenza Type B (PCR) NEGATIVE (Negative) RSV RNA Qual (PCR) NEGATIVE (Negative) SARS-CoV-2 RNA (RT-PCR) NEGATIVE (Negative) S. pyogenes GrpA SPENSER Negative (Negative) Independent Interpretation I performed an independent interpretation of an: EKG (Normal sinus rhythm rate [address]-T changes normal EKG) Discharge Plan Discharge Clinical Impression: Viral syndrome Patient Disposition: Home, Self-Care Instructions: Viral Syndrome (ED) Additional Instructions: Please follow-up with your primary care physician and drink plenty of flu Prescriptions: No Action cetirizine 10 mg tablet 10 mg PO DAILY clonazepam 1 mg tablet 1 mg PO BID PRN (Reason: anxiety) pregabalin 50 mg capsule 50 mg PO TID albuterol sulfate [Ventolin HFA] 90 mcg/actuation HFA aerosol inhaler 2 puff inhalation Q4H PRN (Reason: wheezing) Referrals: Vish Obando MD [Primary Care Provider] - 11/04/24 Stand Alone Forms: Work/School Release Print Language: Ukrainian
--- OUTSIDE RECORDS SUMMARY | 2024-11-03 09:43 | XMS_ITS | Patient Health Record ---
Author Organization [facility] Address [address] [place] [address] Care Team Providers Care Credit Or Loans Officer Name Role Phone Vish Obando M.D. Primary Care Provider Steve Barber Unavailable [phone] Allergies Allergen (clinical drug ingredient) Drug/Non Drug Allergy documented on EMR Reaction Allergy Type Onset Date Status naproxen Naproxen Unknown Drug Allergy Active tramadol Tramadol Unknown Drug Allergy Active Mold Unknown Allergy Active Dust Mites Unknown Allergy Active Reason For Referral No Information Medications Medication SIG (Take, Route, Frequency, Duration) Notes Start Date End Date Status Cetirizine HCl 10 MG Oral for 90 Active Pregabalin 50 MG Oral for 30 A ctive clonazePAM 1 MG Oral for 30 [id number],Unavailable Active Immunizations Vaccine Route Administration Date Status Comme nts Influenza Unknown 02/20/2023 Refused Social History Tobacco Use: Social History Observation Description Date Details (start date - stop date) Never Smoker NA - NA Tobacco Use/Smoking Question Answer Notes Patient is a nonsmoker Alcohol Screen Question Answer Notes Did you have a drink containing alcohol in the p ast year? No Points 0 Interpretation Negative Problems Problem Type SNOMED Code ICD Code Onset Dates Problem Status W/U Status Risk Notes Problem 831073014 Colon cancer screening (Z12.11) Active confirmed Problem 431211772 Irritable bowel syndrome with constipation (K58.1) Active confirmed Problem [id number] Gastroesophageal reflux disease, unspecified whether esophagitis present (K21.9) Active confirmed Plan Of Treatment Future Test Test Name Order Date UPPER GI ENDOSCOPY 02/20/2023 COLONOSCOPY 02/20/2023 Insurance Providers Payer Name Payer Address Payer Phone Subscriber Number Group Number Insured Name Patient Relationship to Insured Coverage Start Date Coverage End Date [employer] [address] [place] [phone] [id number] YAKOV VALDEZ Self - patient is the insured MEDICAID OF [facility] [address] [place] [phone] [id number] YAKOV VALDEZ Self - patient is the insured Medical (General) History Medical History History ICD Code Asthma E.coli with colitis in approx 2015--had a colon[place] Fibromyalgia Anxiety Denies DC,CVA,renal disease HTN Prediabetic Glaucoma Surgical History Surgery Date(Month/Year) 1994 Eye surgery
--- OUTSIDE RECORDS SUMMARY | 2024-11-03 09:43 | XMS_ITS ---
Author Organization [facility] Address [address] [place] [address] Care Team Providers Care Instructional Systems Specialist Name Role Phone Vish Obando M.D. Primary Care Provider Unav ailable Steve Sanchez [phone] Encounters Encounter Location Date Provider Diagnosis [facility] [address] [facility] [address] [place] [address] 05/25/2023 Steve Sanchez Plan Of Treatment No Information Progress Notes * YAKOV VALDEZ DDOB: [birth year] (47 yo F)Acc No.[id number]:05/25/2023 Patient:?YAKOV VALDEZ :1975???Age:47 Y???Sex:Female Address:[address] [place] [address], [address] * true * Date:? Generated for Christian simon/Radha/eTransmitting on:?11/03/2024 09:43 AM EDT
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
--- OUTSIDE RECORDS SUMMARY | 2024-11-03 09:43 | XMS_ITS ---
Author Organization [facility] Address [address] [place] [phone] Care Team Providers Care Bookseamer Blindstitch Name Role Phone Vish Obando M.D. Primary Care Provider Unav ailSteve Kingsley [phone] REASON FOR VISIT IBS w/ Constipation,screening, gerd Encounters Encounter Location Date Provider Diagnosis [facility] Outpatient [address] [place] [phone] 05/19/2023 Steve Sanchez Plan Of Treatment No Information Progress Notes * COURTNEY, YKAOV DDOB: 7 (49 yo F)Acc No.[id number]:05/19/2023 EGD and COL/MAC Patient:?YAKOV VALDEZ Provider:?Steve Sanchez MD :1975???Age:47 Y???Sex:Female D ate:05/19/2023 Address:[address] [place] [address] Pcp:Vish Obando M.D. Subjective: * Chief Complaints: * ???1. IBS w/ Constipation,sc reening, gerd. * Medical History:? Objective: * Vitals:? Assessment: Plan: * Treatment: * * The named appointment provid er may or may not be the originator of this progress note, and it is not deemed complete until electronically signed by the appointment provider. Sign off status: Pending * Provider:?Steve Sanchez MD Date:? 023 Generated for Christian simon/Radha/eTransmitting on:?11/03/2024 09:43 AM EDT
[2024-11-03 10:10] LABS: IDNOW Serial# 55D5AD1C; Strep A Nucleic Acid Negative (Negative)
[2024-11-03 10:29] LABS: MANUAL DIFF FLAG NO
[2024-11-03 10:32] LABS: Basophils Absolute Auto 0.1 X10*3/uL (0.0-0.2); Basophils Percent Auto 0.7 % (0-2); Eosinophils Absolute Auto 0.3 X10*3/uL (0.0-0.4); Eosinophils Percent Auto 3.4 % (0-4); Hematocrit 37.8 % (37.0-47.0); Hemoglobin 13.5 g/dl (12.0-16.0); Imm Gran Abs Auto 0.02 X10*3/uL (0.00-0.03); Imm Gran Pct Auto 0.2 % (0.0-0.4); Lymphocytes Absolute Auto 2.8 X10*3/uL (1.2-4.9); Mean Corpuscular HGB Conc 35.7 g/dl (31.0-35.0); Mean Corpuscular Hemoglobin 31.8 pg (27.0-33.0); Mean Corpuscular Volume 89.2 fL (80.0-98.0); Mean Platelet Volume 8.6 fL (9.4-12.3); Monocytes Absolute Auto 0.9 X10*3/uL (0.1-1.2); Monocytes Percent Auto 9.7 % (2-11); Platelet Count 294 X10*3/uL (160-400); Red Blood Count 4.24 X10*6/uL (4.20-5.50); Red Cell Distribution Width 12.8 % (11.0-16.0)
[2024-11-03 10:34] VITALS: BP 142/85; PULSE 61; RESP 18; TEMP 36.8; O2SAT 99
[2024-11-03 10:49] LABS: Alanine Aminotransferase 13 U/L (0-31); Albumin Level 3.8 g/dL (3.5-5.0); Anion Gap 13 (12-20); Aspartate Amino Transferase 20 U/L (5-31); Bilirubin Total 0.7 mg/dL (0.0-1.0); Blood Urea Nitrogen 6 mg/dL (9-16); Calcium 8.7 mg/dL (8.4-10.2); Carbon Dioxide 23 mmol/L (22-29); Chloride 107 mmol/L (96-108); Creatinine Clr Calc Pharmacy 111.4; Estimated Glomerular Filt Rate > 60; Glucose Random 98 mg/dL (60-115); Potassium 3.8 mmol/L (3.3-5.1); Sodium 139 mmol/L (135-145); Total Protein 7.2 g/dL (6.5-8.0)
[2024-11-03] MEDS: 0.9 % Sodium Chloride 1,000 ML 999 ML IV (10:49)
[2024-11-03] MEDS: ondansetron HCL 4 MG/2 ML VIAL IVPUSH (10:49)
[2024-11-03 10:53] LABS: Influenza A PCR NEGATIVE (Negative); Influenza B PCR NEGATIVE (Negative); Resp Syncy Virus RNA Qual PCR NEGATIVE (Negative); SARS COV2 PCR INHOUSE NEGATIVE (Negative)
[2024-11-03 10:56] LABS: Alkaline Phosphatase 63 U/L (39-117)
[2024-11-03 12:41] VITALS: BP 143/99; PULSE 63; RESP 18; TEMP 36.7; O2SAT 100
[2024-11-03 12:44] VITALS: BP 143/99; PULSE 63; RESP 18; TEMP 36.7; O2SAT 100
== END 2024-11-03 12:47 | disposition home or self-care (01) ==
PROVIDERS: Emergency Provider Emergency Medicine; PCP Internal Medicine
DX: B34.9 Viral infection, unspecified (principal); J02.9 Acute pharyngitis, unspecified; R53.1 Weakness; M79.7 Fibromyalgia; Z03.818 Encounter for observation for suspected exposure to other biological agents ruled out; Z79.899 Other long term (current) drug therapy
CPT/HCPCS: 0241U; 36415; 80053; 85025; 87651; 93005; 96361; 96374; 99284; 99285; J2405

== ENCOUNTER → 2024-11-03 09:31 | Outpatient (BNV) | payer MEDICAID, SELFPAY | PROVIDERS: Emergency Provider Emergency Medicine; PCP Internal Medicine; Visit Provider Internal Medicine Cardiovascular Disease | DX: R07.9 Chest pain, unspecified (principal) | CPT/HCPCS: 93010 ==

== ENCOUNTER 2024-11-04 20:50 | Emergency (ER) | payer MEDICAID, SELFPAY ==
--- NOTE | 2024-11-04 | ECG_ITS ---
Test Reason : chest pain Blood Pressure : */* mmHG Vent. Rate : 64 BPM Atrial Rate : 64 BPM P-R Int : 184 ms QRS Dur : 78 ms QT Int : 386 ms P-R-T Axes : 56 26 43 degrees QTcB Int : 398 ms Normal sinus rhythm Normal ECG When compared with ECG of 03-Nov-2024 09:31, No significant change was found Referred By: Generic ED Physician Electronically Signed By: DARIELA RYAN MD
[2024-11-04 21:01] VITALS: BP 141/75; PULSE 73; RESP 18; TEMP 36.2; O2SAT 99; BMI 31.3
--- NOTE | 2024-11-04 22:36 | MHC.EDTECH ---
assumed care of pt, changed her over into hospital gown and placed on electronic device monitor. VS, bloodwork, and EKG completed in triage
[2024-11-04 22:38] VITALS: PULSE 75; RESP 15
--- NOTE | 2024-11-04 23:10 | ED.GENADULT ---
HPI - General Adult General Chief complaint: General Medical Stated complaint: chest pain, arm bruising old iv site Time Seen by Provider: 11/04/24 23:05 Source: patient Mode of arrival: ambulatory Limitations: no limitations History of Present Illness ED Provider: HPI narrative: Patient's history of migraine headache and fibromyalgia was seen here yesterday labs were stable comes here has she noticed the at the site of IV line patient has a increased pain and ecchymosis also complaining of headache and chest pain patient took her oxycodone prior to arrival no known coronary artery disease chest pain reproducible and increases on palpation and taking deep breaths and movement Related Data Home Medications ?Medication ?Instructions ?Recorded ?Confirmed albuterol sulfate 90 mcg/actuation 2 puff inhalation Q4H PRN wheezing 05/13/23 05/13/23 aerosol inhaler (Ventolin HFA) cetirizine 10 mg tablet 10 mg PO DAILY 05/13/23 05/13/23 clonazepam 1 mg tablet 1 mg PO BID PRN anxiety 05/13/23 05/13/23 pregabalin 50 mg capsule 50 mg PO TID 05/13/23 05/13/23 Previous Rx's ?Medication ?Instructions ?Recorded nbrfvwpzna-mdvcpauqyjwgg-egrkfgna 1 tab PO Q6H PRN haeadace #20 tabs 11/05/24 50 mg-325 mg-40 mg tablet sumatriptan succinate 50 mg tablet 50 mg PO Q2H PRN migraine headache 11/05/24 (Imitrex) #10 tabs Allergies Allergy/AdvReac Type Severity Reaction Status Date / Time naproxen Allergy Severe Anaphylaxis Verified 11/04/24 21:02 Iodinated Contrast Media Allergy Intermediate HIVES Verified 11/04/24 21:02 [IVP DYE] tramadol [TRAMADOL] Allergy Intermediate HIVES Verified 11/04/24 21:02 Review of Systems Review of Systems: Yes all other systems are reviewed and are negative PMFSH Past Medical History Medical History Pre-diabetes Asthma Glaucoma PTSD (post-traumatic stress disorder) Depressed Scoliosis Migraine Fibromyalgia Surgical History Hx of section Tubal ligation status Social History Social History Alcohol intake: never Advance Directives: No Advance Directives Information Provided: No Do you have a plan to hurt others: No Plan Physical Exam ED Vital Signs: Vital Signs - 24 hr 11/04/24 21:01 11/04/24 22:38 11/05/24 01:29 Temperature 97.1 F 98.0 F Pulse Rate 73 75 66 Respiratory Rate 18 15 12 Blood Pressure 141/75 H 127/70 Pulse Oximetry 99 100 Oxygen Delivery Method Room Air Room Air 11/05/24 01:53 Temperature 98.0 F Pulse Rate 66 Respiratory Rate 12 Blood Pressure 127/70 Pulse Oximetry 100 Oxygen Delivery Method Room Air BMI result Body Mass Index 31.3 Appearance: Alert. Oriented X3. No acute distress. Eyes: PERRLA, No Nystagmus ENT: Pharynx normal. Oral Mucosa moist Neck: Normal inspection. Neck supple. CVS: Normal heart rate and rhythm. Pulses normal. Left chest wall tenderness++ Respiratory: No respiratory distress. Equal air entry bilateral, no wheezing/rales/rhonchi Abdomen: Soft and nontender. Bowel sounds are present, no mass palpable, no CVA tenderness Skin: Skin warm and dry. Normal skin color. Normal skin turgor. Extremities: No lower extremity edema. No calf tenderness left arm small ecchymosis radial and brachial artery pulse 2+ Neuro: Oriented X 3. No motor deficit. No sensory deficit.No cerebellar signs , cranial nerves II-XII intact Medications Administered Discontinued Medications Generic Name Dose Route Start Last Admin Trade Name Freq PRN Reason Stop Dose Admin Acetaminophen/Butalbital/Caffeine 1 tab 11/05/24 01:25 11/05/24 01:39 Butalb/Acetamin/Caff 50/325/40 Tablet PO 11/05/24 01:26 1 tab ONCE ONE Administration Ondansetron HCl 4 mg 11/04/24 23:59 11/05/24 00:29 Ondansetron Odt 4 Mg Tab.Rapdis TRANSLINGU 11/05/24 00:00 4 mg ONCE ONE Administration Sumatriptan Succinate 6 mg 11/04/24 23:59 11/05/24 00:29 Sumatriptan Succinate 6 Mg/0.5 Ml Vial SUBCUT 11/05/24 00:00 6 mg ONCE ONE Administration Medical Decision Making Medical Decision Making MDM Narrative: Patient with migraine headache will try Imitrex left antecubital ecchymosis is from the Angiocath which was placed yesterday likely injuring to the heart rate at this time no significant swelling or compression. Patient does have chest wall tenderness with history of fibromyalgia Patient has responded to Imitrex discharge patient home on Imitrex and Fioricet Discharge Plan Discharge Clinical Impression: Migraine Patient Disposition: Home, Self-Care Instructions: Migraine Headache (ED) Additional Instructions: Rest at home Take medication for migraine as prescribed Follow up with your PCP Prescriptions: New sumatriptan succinate [Imitrex] 50 mg tablet 50 mg PO Q2H PRN (Reason: migraine headache) Qty: 10 0RF Rx Instructions: do not exceed 2 doses per 24 hrs xtwclpyyur-murpilgnfxpze-yjzd 50-325-40 mg tablet 1 tab PO Q6H PRN (Reason: haeadace) Qty: 20 0RF No Action cetirizine 10 mg tablet 10 mg PO DAILY clonazepam 1 mg tablet 1 mg PO BID PRN (Reason: anxiety) pregabalin 50 mg capsule 50 mg PO TID albuterol sulfate [Ventolin HFA] 90 mcg/actuation HFA aerosol inhaler 2 puff inhalation Q4H PRN (Reason: wheezing) Interventions: ED Discharge Assessment Last Done: 11/05/24 01:53 Discharge Date/Time: 11/05/24 02:00 Print Language: [place] Island[place]
[2024-11-05] MEDS: SUMAtriptan succinate 6 MG/0.5 ML VIAL SUBCUT (00:29)
[2024-11-05] MEDS: Ondansetron ODT 4 MG TAB.RAPDIS TRANSLINGU (00:29)
--- NOTE | 2024-11-05 00:53 | PC.NURSE ---
pt moaning/grimacing from pain resolved. lying quietly in semi fowlers looking at phone. endorses relief from head pain, now a 12/30. see mar
[2024-11-05 01:29] VITALS: BP 127/70; PULSE 66; RESP 12; TEMP 36.7; O2SAT 100
[2024-11-05] MEDS: Butalb/Acetamin/Caff 50/325/40 TABLET 1 TAB PO (01:39)
[2024-11-05 01:53] VITALS: BP 127/70; PULSE 66; RESP 12; TEMP 36.7; O2SAT 100
== END 2024-11-05 02:00 | disposition home or self-care (01) ==
PROVIDERS: Emergency Provider Internal Medicine; PCP Internal Medicine
DX: G43.909 Migraine, unspecified, not intractable, without status migrainosus (principal); R07.9 Chest pain, unspecified
CPT/HCPCS: 93005; 96372; 99284; J3030

== ENCOUNTER → 2024-11-04 20:53 | Outpatient (BNV) | payer MEDICAID, SELFPAY | PROVIDERS: Emergency Provider Internal Medicine; PCP Internal Medicine; Visit Provider Internal Medicine Cardiovascular Disease | DX: R07.9 Chest pain, unspecified (principal) | CPT/HCPCS: 93010 ==